=== PATIENT | male | born 1970 | race Caucasian/White ===

== ENCOUNTER 2022-03-18 09:11 | Outpatient (CLI) | payer OTHER, SELFPAY ==
--- NOTE | 2022-03-18 09:17 | ECG_ITS ---
Measurements Intervals [place] Rate: 79 P: 54 SC: 146 QRS: 40 QRSD: 92 T: 66 QT: 321 QTc: 370 Interpretive Statements SINUS RHYTHM WITH MARKED SINUS ARRHYTHMIA BASELINE WANDER- V2-V3 BORDERLINE ECG NO PREVIOUS ECG AVAILABLE FOR COMPARISON Electronically Signed On 03-18-2022 12:10:42 BALE PILER by Nathaniel Nino D.O.
== END 2022-03-18 09:12 | disposition home or self-care (01) ==
LOC: ANHLAB 09:12
PROVIDERS: PCP Family Medicine; Visit Provider Family Medicine
DX: R07.9 Chest pain, unspecified (principal)
CPT/HCPCS: 93005

== ENCOUNTER 2022-03-25 12:44 | Outpatient (CLI) | payer OTHER, SELFPAY ==
--- NOTE | ~2022-03-25 | CT_ITS ---
EXAMINATION: CT brain wo con DATE: 03/25/2022 13:30 INDICATION: Headache TECHNIQUE: Computed tomography (CT) of the head was performed without intravenous contrast. The dose- length product was 605.33 mGy-cm. Automated exposure control and iterative reconstruction technique w ere employed. COMPARISON: None FINDINGS: Normal brain parenchymal volume. Normal copeland-white differentiation. No acute intracranial h emorrhage, infarction or mass. No ventriculomegaly or midline shift. There is mucosal thickening of t he ethmoid and sphenoid sinuses. Mastoids are pneumatized. No depressed skull fractures. IMPRESSION: 1. No acute intracranial abnormality. 2: Mild sinus disease. Reviewed, dictated and finalized at location B. ICE ATTENDANT
--- NOTE | ~2022-03-25 | US_ITS ---
EXAMINATION: US carotid duplex BI DATE: 03/25/2022 13:29 INDICATION: Paresthesias of the skin TECHNIQUE: Grayscale, color Doppler, and pulsed Doppler images of the cervical carotid arteries were obtained. The degree of vessel stenosis is placed in one of the following categories: normal, <50%, 5 0-69%, >=70% but less than near-occlusion, near-occlusion, or total occlusion. Note that percent sten osis relative to normal distal artery lumen diameter is indirectly measured from velocity measurement s as described by Temo, et al. Radiology 2003; 229:340-346. Notes: Normal: Peak systolic velocity <125 centimeters/sec and no plaque <50%. Peak systolic velocity <125 ( EDV <40; ICA/CCA PSV ratio <2.0; used these factors only a tandem lesions or low cardiac output or co ntralateral disease) 50-69 %: PSV 125-230 (EDV 40-100; ratio 2-4) >= 70% but less than near occlusion: PSV greater than 230 (EDV > 100; ratio> 4.0) Near Occlusion: PSV that is variable; markedly narrowed lumen Occlusion: Absent flow on color/spectral Doppler and no lumen on copeland scale. COMPARISON: None. FINDINGS: RIGHT: The right common carotid artery (CCA) peak systolic velocity (PSV) is 145 cm/s. The right internal ca rotid artery (ICA) PSV is 87 cm/s. The right ICA end-diastolic velocity (EDV) is 21 cm/s. The right I CA/CCA PSV ratio is 0.6. The external carotid artery (ECA) PSV is 139 cm/s. There is antegrade flow i n the right vertebral artery. LEFT: The left CCA PSV is 168 cm/s. The left ICA PSV is 74 cm/s. The left ICA EDV is 27 cm/s. The left ICA/ CCA PSV ratio is 0.4. The ECA PSV is 102 cm/s. There is antegrade flow in the left vertebral artery. IMPRESSION: 1. Less than 50% stenosis in the right internal carotid artery by sonographic criteria. 2. Less than 50% stenosis in the left internal carotid artery by sonographic criteria. Reviewed, dictated and finalized at location B. IT CORRESPONDENCE CLERK IMPRESSION: 1. Less than 50% stenosis in the right internal carotid artery by sonographic c jitendra. 2. Less than 50% stenosis in the left internal carotid artery by sonographic edyta sherman.
== END 2022-03-25 12:45 | disposition home or self-care (01) ==
LOC: ANHIMG 12:46
PROVIDERS: PCP Family Medicine; Visit Provider Family Medicine
DX: R51.9 Headache, unspecified (principal); R20.2 Paresthesia of skin; I65.23 Occlusion and stenosis of bilateral carotid arteries
CPT/HCPCS: 70450; 93880

== ENCOUNTER 2022-04-07 09:52 | Outpatient (CLI) | payer OTHER, SELFPAY ==
--- NOTE | 2022-04-07 09:55 | EST_ITS ---
Patient Info Name: Shane Roman Age: 52 years : 1970 Gender: Male Ht: 68 in Wt: 210 lbs BSA: 2.17 m2 Exam Date: 04/07/2022 10:06 AM Exam Location: [facility] Stress Patient Status: Outpatient Admit Date: 04/07/2022 Staff Ordering Physician: Shiraz Masters MD Attending Provider: Shiraz Masters MD Exercise Technologist: Eliana Means RDCS Nurse: RAQUEL LOPEZ NP Exam Type: CA stress test treadmill Study Info Indications R07.9 - Chest pain, unspecified A treadmill exercise stress test was performed. Summary 1. No abnormal ST/T wave changes diagnostic of ischemia with exercise. 2. Occasional PVCs. 3. Exercise capacity very good at >10 METS. Protocol: [place] Stress ECG Details Stage: REST Duration (min): 0 min : 50 sec Speed (mph): 0.0 Grade (%): 0 HR (bpm): 88 SBP (mmHg): 143 DBP (mmHg): 89 METS: --- Stage: REST Duration (min): 2 min : 31 sec Speed (mph): 0.0 Grade (%): 0 HR (bpm): 106 SBP (mmHg): 143 DBP (mmHg): 89 METS: --- Stage: REST Duration (min): 4 min : 30 sec Speed (mph): 0.0 Grade (%): 0 HR (bpm): 97 SBP (mmHg): 143 DBP (mmHg): 89 METS: --- Stage: STAGE 1 Duration (min): 1 min : 0 sec Speed (mph): 1.7 Grade (%): 10 HR (bpm): 114 SBP (mmHg): 143 DBP (mmHg): 89 METS: --- Stage: STAGE 1 Duration (min): 2 min : 0 sec Speed (mph): 1.7 Grade (%): 10 HR (bpm): 110 SBP (mmHg): 143 DBP (mmHg): 89 METS: --- Stage: STAGE 1 Duration (min): 3 min : 0 sec Speed (mph): 1.7 Grade (%): 10 HR (bpm): 111 SBP (mmHg): 169 DBP (mmHg): 90 METS: --- Stage: STAGE 2 Duration (min): 1 min : 0 sec Speed (mph): 2.5 Grade (%): 12 HR (bpm): 118 SBP (mmHg): 169 DBP (mmHg): 90 METS: --- Stage: STAGE 2 Duration (min): 2 min : 0 sec Speed (mph): 2.5 Grade (%): 12 HR (bpm): 125 SBP (mmHg): 163 DBP (mmHg): 92 METS: --- Stage: STAGE 2 Duration (min): 3 min : 0 sec Speed (mph): 2.5 Grade (%): 12 HR (bpm): 125 SBP (mmHg): 163 DBP (mmHg): 92 METS: --- Stage: STAGE 3 Duration (min): 1 min : 0 sec Speed (mph): 3.4 Grade (%): 14 HR (bpm): 138 SBP (mmHg): 176 DBP (mmHg): 96 METS: --- Stage: STAGE 3 Duration (min): 1 min : 49 sec Speed (mph): 3.4 Grade (%): 14 HR (bpm): 143 SBP (mmHg): 176 DBP (mmHg): 96 METS: --- Stage: RECOVERY Duration (min): 0 min : 10 sec Speed (mph): 1.5 Grade (%): 0 HR (bpm): 143 SBP (mmHg): 176 DBP (mmHg): 96 METS: --- Stage: RECOVERY Duration (min): 1 min : 10 sec Speed (mph): 0.0 Grade (%): 0 HR (bpm): 134 SBP (mmHg): 176 DBP (mmHg): 96 METS: --- Stage: RECOVERY Duration (min): 2 min : 10 sec Speed (mp
== END 2022-04-07 09:53 | disposition home or self-care (01) ==
LOC: ANHCARD 09:53
PROVIDERS: PCP Family Medicine; Visit Provider Family Medicine
DX: R07.9 Chest pain, unspecified (principal)
CPT/HCPCS: 93017

== ENCOUNTER 2022-11-30 09:23 | Outpatient (CLI) | payer OTHER, SELFPAY ==
--- NOTE | ~2022-11-30 | CT_ITS ---
CT Scan of the Chest without Contrast: Clinical Indication: Lung cancer screening, smoking history Technique: Contiguous sections were acquired throughout the chest without intravenous contrast. Dose reduction technique was used on this scan by utilizing automated exposure control and iterative recon struction technique. The dose-length product (DLP) was 175.64 mGy-cm. Findings: There is no evidence of any significant mediastinal, hilar or axillary lymphadenopathy. The mediastin al soft tissues appear normal. There is no evidence of pleural or pericardial effusion. The lungs are clear. No pulmonary nodules or infiltrates are noted. Images through the upper abdomen reveal no abnormalities. There is DISH of the thoracic spine. Impression: Lung RADS 1: Negative. 12 month follow-up screening CT advised. Reviewed, dictated and finalized at location . Impression: Lung RADS 1: Negative. 12 month follow-up screening CT advised.
[2022-11-30 10:50] LABS: Alveolar/Arterial O2 Gradient 27.1 mmHg; Base Excess ABG 2.7 mEq/l (+/-2.0); Carboxyhemoglobin 0.3 % THb (0-2.0); Fractional Inspired Oxygen 21 %; HCO3 ABG 27.7 mEq/l (22.0-26.0); Methemoglobin ABG 0.4 %THb (0-1.5); Oxygen Content ABG 23.7 %vol (16.0-22.0); Oxygen Saturation ABG 94.4 % (95.0-100.0); PCO2 ABG 43.7 mmHg (35.0-45.0); PO2 ABG 70.3 mmHg (80.0-100.0); PO2 FiO2 Ratio Arterial Blood 3.35 %; Reduced Hemoglobin 6.3 %THb (0-5.0); Total Hemoglobin 18.2 g/dL (12.0-18.0)
[2022-11-30 10:59] LABS: Device ROOM AIR; Site Drawn RIGHT BRACHIAL
--- NOTE | 2022-11-30 14:05 | WPDSIXMINUTE ---
Six Minute Walk Procedure Procedure Performed Pulmonary Stress Test (6 min walk) Six Minute Walk Six Minute Walk: This is a 6 minute walk test. The test was performed and interpreted in accordance with the 2014 ERS/ATS task force guidelines. Findings: The patient's resting room air oxygen saturation measured by pulse oximetry was 94% and heart rate was 79 bpm. Patient ambulated for 305 meters and oxygen saturation remained 91 to 94%. Heart rate at the end of the study was 97 bpm. The patient did not qualify for supplemental oxygen at rest or with ambulation. There are no prior studies for comparison.
--- NOTE | 2022-11-30 14:06 | WPDPFTINT ---
PFT Procedure Performed PFT Procedure Performed Spirometry with Pre/Post Bronchodilator Plethysmography (Lung Vol) Diffusing Cap (DLCO) Flow Vol Loop PFT Interpretation This is a pulmonary function test with pre and post-bronchodilator spirometry, plethysmography, diffusing capacity, and arterial blood gas. The test was performed and results interpreted in accordance with the 2019 and 2005 ATS/ERS Task Force guidelines respectively using the Global Lung Function Initiative-2012 reference equations. Patient demonstrated good effort and cooperation. Reproducibility criteria were met. The quality of the pre bronchodilator spirometry maneuver was Grade A and post bronchodilator spirometry maneuver was Grade A. Findings: Spirometry: There is decreased maximal expiratory airflow at all lung volumes with concave expiratory flow tracing. The contour the inspiratory flow tracing is normal. The pre bronchodilator FVC is 3.53 L, 78% predicted. The pre bronchodilator FEV1 is 2.30 L, 64% predicted. The pre bronchodilator FEV1: FVC ratio 65%. The post bronchodilator FVC is 4.35 L, representing a 23 % increase. The post bronchodilator FEV1 is 2.85 L, representing a 24% increase. The post bronchodilator FEV1: FVC ratio is 65%. Plethysmography: The total lung capacity is 7.23 L, 110% predicted. The functional residual capacity is 3.73 L, 111% predicted. The residual volume is 3.57 L, 177% predicted. Diffusing capacity: The diffusing capacity unadjusted for hemoglobin and carboxyhemoglobin is 24.4, 84% predicted. The diffusing capacity adjusted for alveolar volume is 4.03, 89% predicted. Resting room air arterial blood gas: The pH is 7.42. The PaCO2 is 44. The PaO2 is 70. Impression: There is a moderate obstructive abnormality with significant improvement after inhaling a single dose of albuterol. The increase in residual volume is consistent with air trapping from an obstructive abnormality. The diffusing capacity is normal . The resting room air blood gas demonstrates normal pH and PaCO2 with a PO2 that is below the lower limit of normal. There are no prior studies for comparison
== END 2022-11-30 09:24 | disposition home or self-care (01) ==
PROVIDERS: PCP Family Medicine; Visit Provider Internal Medicine Pulmonary Disease
DX: J44.9 Chronic obstructive pulmonary disease, unspecified (principal); Z87.891 Personal history of nicotine dependence; R06.00 Dyspnea, unspecified; J40 Bronchitis, not specified as acute or chronic; R94.2 Abnormal results of pulmonary function studies
CPT/HCPCS: 36600; 71271; 82375; 82805; 83050; 94060; 94618; 94726; 94729

== ENCOUNTER 2025-04-19 10:29 | Emergency (ER) | payer BC, SELFPAY ==
[2025-04-19 10:39] VITALS: BP 137/76; PULSE 65; RESP 18; TEMP 36.6; O2SAT 97
[2025-04-19 10:56] LABS: EDSTREPNEGPOS1 Negative (Negative)
--- NOTE | 2025-04-19 11:03 | ED_ITS ---
HPI - URI/Sore Throat General Chief Complaint: Upper Respiratory Infection Stated Complaint: Sore Throat Time Seen by Provider: 04/19/25 10:45 Source: patient and RN notes reviewed Mode of arrival: ambulatory Limitations: no limitations History of Present Illness HPI Narrative: 55-year-old male patient presents Express Care complaining of eye redness and discharge, and sore throat for 2 days. Patient reports his left eye is read as having purulent drainage. Patient denies any vision problems, eye pain, headaches, nausea, vomiting, any other symptoms. Patient denies any other upper respiratory symptoms, cough, fevers, body aches, chills, or any other symptoms. Related Data Allergies Allergy/AdvReac Type Severity Reaction Status Date / Time No Known Allergies Allergy Unknown Verified 04/19/25 10:30 NKDA Allergy Mild Unknown Uncoded 11/07/24 08:52 Review of Systems Review of Systems: CONSTITUTIONAL: Denies fever, chills, or sweats. EYES: Denies visual changes. Positive for redness and discharge. ENT: Denies rhinorrhea, congestion, or otalgia. Positive for sore throat CARDIOVASCULAR: Denies chest pain, palpitations, or edema. RESPIRATORY: Denies cough or dyspnea. GASTROINTESTINAL: Denies abdominal pain, nausea, vomiting, or diarrhea. GENITOURINARY: Denies dysuria or hematuria. SKIN: Denies rash or itching. MUSCULOSKELETAL: Denies back pain, joint pain, or myalgia. NEUROLOGIC: Denies headache, numbness, or weakness. PSYCHIATRIC: Denies anxiety or depression. All other systems reviewed are negative, except as documented in HPI. [facility] Past Medical History Medical History COVID-19 (~02/24/22) GERD (gastroesophageal reflux disease) Chronic anxiety Paresthesia of left lower extremity CT of the brain on 03/25/2022 was negative except for mild thickening of the ethmoid and sphenoid sinuses. Carotid Doppler studies were negative with less than 50% occlusion bilaterally. Paresthesias in left hand New onset headache (~02/24/22) Chest pain EKG on 03/18/2022 reveals marked sinus arrhythmia with no obvious ischemia. Heart rate 76. Exercise stress test on 04/07/2022 was negative for ischemia with occasional PVCs. Hypersomnia (~07/24/21) ADHD (attention deficit hyperactivity disorder), inattentive type ADHD with treatment started in the 8th grade Obesity (BMI 30.0-34.9) BMI 31.0-31.9,adult BMI 32.0-32.9,adult Polycythemia (08/02/20) hemoglobin 17.9 on 08/02/2020. Hemoglobin 16.8 on 03/16/2022. Hemoglobin 18.5 on 11/07/2024. Atypical chest pain Chronic depression Abnormal fasting glucose Glucose 104 With hemoglobin A1c 5.9 on 03/16/2022. Fasting glucose 135 with hemoglobin A1c 6.1 with GFR 84 on 11/07/2024. Chronic nonallergic rhinitis Encounter for wellness examination in adult Colon cancer screening Cologuard screening on 01/20/2021 was negative. Recheck in 3 years. Cologuard was negative on 03/13/2025 with recheck in 3 years. Encounter for prostate cancer screening PSA 1.4 on 03/16/2022. PSA 1.3 on 11/07/2024. BPH without obstruction/lower urinary tract symptoms Chronic pain of right knee Chronic low back pain with right-sided sciatica Male erectile dysfunction, unspecified Hypogonadism male Testosterone low at 191 on 07/03/2015. Testosterone 1101 with free testosterone 20.7 on 08/02/20. total testosterone 780 with free testosterone 16.3 on 03/16/2022. Testosterone 673 with free testosterone 12.5 on 11/07/2024. Mixed hyperlipidemia Total cholesterol 159, triglycerides 231, HDL 43, LDL 73 on 03/16/2022. Cholesterol 139, triglycerides 189, HDL 44, LDL 64 on 11/07/2024. Essential (primary) hypertension Wimof-Dynmdauli-Dvris (WPW) pattern Cardiac arrhythmia Arthritis COPD (chronic obstructive pulmonary disease) patient smoked 3 packs of cigarettes daily for 25 years stopping in 2013. PFT on 11/30/2022 reveals moderate obstructive defect with reversibility. 6 minute walk test with oxygen saturation remaining above 91% on 11/30/2022. Surgical History Surgical History Hx of cholecystectomy History of cardiac ablation for atrial fibrillation H/O knee surgery (Unknown) 7 surgeries since age 11 Family History Family History Father Brain aneurysm Grandparent Cancer Unknown Hypertension Social History Social History Smoking status: Former smoker Alcohol intake: current Drinks per week: 12 Alcohol use details: beer Substance use type: marijuana Lack of Transportation: No Lack of Food: Never True Current Housing: I Have Housing Concerned About Future Housing: No Difficulty Paying Gas/Electric Bills: No Difficulty Paying for Meds: No Currently Unemployed: No Education: High School Diploma/GED Difficulty w/ Childcare or Family Care: No Living arrangements: with family Occupation/Education: occupation 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 There is no relevant family history pertinent to the patient complaint. Exam Narrative: GENERAL: This is a well-nourished, well-developed adult, in no apparent distress. They are non ill-appearing, nontoxic appearing. HEAD: normocephalic, atraumatic. EYES: Sclera clear/white. Right Conjunctiva normal. Left conjunctiva injected. Vision is grossly intact. Extraocular movements intact. Pupils PERRLA EARS: External ears normal, auditory canals clear and without drainage, TMs normal without perforation. Hearing grossly intact. NOSE: External nose normal with no obvious nasal discharge, nasal turbinates without redness, no rhinorrhea. THROAT: Mucous membranes moist, posterior pharynx erythematous red and patchy. Tonsils erythematous with exudate, 2+. Uvula midline. NECK: Neck supple, mild tender cervical lymphadenopathy, no masses or thyromegaly. CARDIOVASCULAR: Regular rate and rhythm without murmurs, gallops, or rubs. RESPIRATORY: Clear to auscultation. Breath sounds equal bilaterally. No wheezes, rales, or rhonchi. SKIN: warm, Dry, intact with no suspicious lesions or rash, good texture and turgor. NEURO: awake, alert, and oriented to person, place and time. There were no obvious focal neurologic abnormalities. EXTREMITIES: No joint tenderness, effusion, or edema noted. BACK: Nontender without deformity. No CVA tenderness. Course Course Level of Care: Express Care Visit Vital Signs Vital signs: Vital Signs Temperature 97.8 F 04/19/25 10:39 Pulse Rate 65 04/19/25 10:39 Respiratory Rate 18 04/19/25 10:39 Blood Pressure 137/76 04/19/25 10:39 Pulse Oximetry 97 04/19/25 10:39 Oxygen Delivery Room Air 04/19/25 10:39 Temperature 97.8 F 04/19/25 10:39 Pulse Rate 65 04/19/25 10:39 Respiratory Rate 18 04/19/25 10:39 Blood Pressure 137/76 04/19/25 10:39 Pulse Oximetry 97 04/19/25 10:39 Oxygen Delivery Room Air 04/19/25 10:39 MDM MDM Narrative Medical decision making narrative: Rapid strep negative. A throat culture is pending. There is clinical suspicion of strep pharyngitis, he has a known exposure to strep throat. Patient would like to wait for culture results prior to antibiotic therapy. Send him home dexamethasone for the pain. Appears patient has conjunctivitis left eye, will send over polymyxin eye drops. Discussed supportive care. Discussed physical exam findings. Advised supportive measures and signs/symptoms to go to the ER. Pt is appropriate for outpt treatment and f/u. Differential Diagnosis Differential Diagnosis: Differential diagnostic considerations for upper respiratory infection include upper respiratory infection, croup, otitis media, sinusitis, viral infection, bronchitis, influenza, pharyngitis, strep, uvulitis, conjunctivitis. Lab Data [facility] Lab Attestation statement: I personally reviewed the patient's lab results. Labs: Lab Results 04/19/25 Range/Units 10:39 POC Grp A Strep Screen Negative (Negative) Critical Care Time Critical Care Time Critical Care Time: No Discharge Plan Discharge Clinical Impression: Acute pharyngitis Qualifiers: Pharyngitis/tonsillitis etiology: unspecified etiology Qualified Code(s): J02.9 - Acute pharyngitis, unspecified Acute bacterial conjunctivitis Qualifiers: Laterality: left Qualified Code(s): H10.32 - Unspecified acute conjunctivitis, left eye Patient Disposition: Home Condition: Stable Instructions: Antibiotic Form, Pharyngitis (ED), Conjunctivitis (ED) Additional Instructions: Your exam today shows Conjunctivitis, You have been given a prescription for eye drops. Use the eye drops as instructed. If you are not better in two (2) days, you need to follow up with an vp software support. Do not rub the eye or put anything else in the eye, this can cause abrasions (scratches) on the eye or lead to vision loss. Also it is important not to touch the tube or tip of drops to the eye, as this can cause further infection. Wash your hands very well before instilling the medication. Handwashing can help prevent the spread of disease. Your rapid strep swab was negative today at [facility]. You will be notified in a few days if the culture comes back positive for strep, and appropriate antibiotics will be called in for you at that time. Your symptoms are likely due to a viral illness, which is not treated with antibiotics. Viral symptoms can be present for up to 10-14 days. Take Tylenol or ibuprofen as needed for fever or pain instructions on the bottle. Take the 1 time dose of dexamethasone as directed. Rest and stay hydrated. Follow up with your PCP in find the 7 days if symptoms are not improving. Go to the ER immediately if you developed chest pain, nausea, vomiting, vision problems, severe headaches, difficulty breathing or swallowing, or any serious concerns Patient Language: Polish Prescriptions: New dexamethasone 6 mg tablet 6 mg PO DAILY 1 Days Qty: 1 0RF polymyxin B sulf-trimethoprim 10,000 unit- 1 mg/mL drops 1 drp LEFT EYE Q3H 7 Days Qty: 10 0RF Rx Instructions: while awake; do not exceed 6 doses in 24 hours No Action albuterol sulfate [ProAir HFA] 90 mcg/actuation HFA aerosol inhaler 2 puff INHALATION Q4H PRN (Reason: shortness of breath or wheezing) Qty: 8.5 5RF sildenafil 100 mg tablet 100 mg PO DAILY PRN (Reason: sexual activity) Qty: 90 3RF Rx Instructions: administer 30 minutes to 4 hours before activity roberts pay with good Rx discount $45.58 nitroglycerin 0.4 mg tablet, sublingual 0.4 mg sublingual Q5M PRN (Reason: chest pain) Qty: 50 0RF Rx Instructions: do not exceed 3 doses per episode do not take with sildenafil tiotropium bromide 2.5 mcg/actuation mist 1 inh inhalation .twice a day Qty: 4 0RF (DME) [employer] Luer Lock Syr-needle 3 mL 23 x 1 syringe See Rx Instructions .Route Qty: 50 0RF Rx Instructions: use with testosterone injection once weekly atorvastatin 20 mg tablet 20 mg PO DAILY Qty: 90 3RF krzzsvmzye-gqhnalpyqnrcl-bopw 50-325-40 mg tablet 1 tablet PO Q6H PRN (Reason: headache) Qty: 60 2RF (DME) BD Eclipse Luer-Vladislav 25 gauge x 1 1/2 needle See Rx Instructions .Route Qty: 50 1RF Rx Instructions: use weekly with testosterone duloxetine [Cymbalta] 60 mg capsule,delayed release(DR/EC) 60 mg PO DAILY Qty: 90 3RF lisinopril-hydrochlorothiazide 20-12.5 mg tablet 1 tablet PO DAILY Qty: 90 3RF testosterone cypionate [Depo-Testosterone] 200 mg/mL oil 200 mg IM WEEKLY Qty: 10 2RF Rx Instructions: as a single dose Follow-up/Referrals: Shiraz Masters MD [Primary Care Provider, [facility]] Time of Disposition: 11:00
--- OUTSIDE RECORDS SUMMARY | 2025-04-19 11:11 | XMS_ITS | Clinical Summary ---
Author Organization [facility] Address [address] [place] [address] Phone Care Team Providers Care Livestock Speculator Name Role Phone Shiraz Masters MD Primary Care Provider Allergies No known active allergies Medications lisinopril-hydro CHLOROthiazide (PRINZIDE, ZESTORETIC) 20-12.5 MG Tablet Take 1 Tab by mouth daily. Active Encounters Date Type Department Care Team Description 03/03/2025 9:34 AM CDT - 03/03/2025 10:18 AM CDT Emergency [facility] Emergency [address] [place] [phone] Steven Vargas MD Cellulitis of right hand Discharge Disposition: Discharged to home or Selfcare 03/03/2025 Travel 02/19/2025 3:57 PM CDT - 02/19/2025 5:43 PM CDT Emergency [facility] Emergency [address] [place] [phone] Venessa Seth APRN, CNP Discharge Disposition: [facility] 02/19/2025 Travel from Last 3 Months Immunizations Immunization Administration Dates Next Due TDAP Vaccine 01/13/2017 Social History Tobacco Use Types Packs/Day Years Used Date Smoking Tobacco: Former Alcohol Use Standard Drinks/Week Comments Yes 0 (1 standard drink = 0.6 oz pur e alcohol) Sex and Gender Information Value Date Recorded Sex Assigned at Not on file Legal Sex Male 11:31 PM CDT Gender Identity Not on file Sexual Orientation Not on file Last Filed Vital Signs Vital Sign Reading Time Taken Comments Blood Pressure 127/79 03/03/2025 10:00 AM CDT Pulse 70 03/03/2025 10:00 AM CDT Temperature 35.6 C (96.1 F) 03/03/2025 9:41 AM CDT Respiratory Rate 18 03/03/2025 9:41 AM CDT Oxygen Saturation 98% 03/03/2025 10:00 AM CDT Inhaled Oxygen Concentration - - Weight 93.1 kg (205 lb 4 oz) 03/03/2025 9:41 AM CDT Height 172.7 cm (5' 8) 03/03/2025 9:41 AM CDT Body Mass Index 31.21 03/03/2025 9:41 AM CDT Plan of Treatment Health Maintenance Due Date Last Done Comments Hepatitis C Virus (HCV) Screening 1970 Hepatitis B Immunization (1 of 3 - 19+ 3-dose series) 01/26/1987 Cologuard 01/26/2013 Colonoscopy 01/26/2013 Colorectal Cancer Screening 01/26/2013 Immunochemical Fecal Occult Blood 01/26/2013 Pneumococcal Immunization (5 0+ years) (1 of 1 - PCV) 01/26/2018 Zoster Immunization (1 of 2) 01/26/2018 PSA Discussion 01/26/2023 Influenza Immunization (#1) 2025 SARS-COV-2 Immunization (1 - season) 2025 Td Immunization Every 10 Yea rs (Adults With 1 Tdap) 01/13/2027 01/13/2017 Respiratory Syncytial Virus (RSV) Immunization (Adult) (1 - 1-dose 75+ series) 01/26/2043 DTaP/Tdap/Td Immunization Discontinued 01/13/2017 Human Papillomavirus (HPV) Immunization (No Doses Required) Completed Meningococcal Immunization (ACWY) Aged Out No longer eligible based on patient's age to complete this topic Rotavirus Immunization Aged Out No lo nger eligible based on patient's age to complete this topic Procedures Procedure Name Priority Date/Time Associated Diagnosis Comments FOREIGN BODY REMOVAL Routine 03/03/2025 9:35 AM CDT XR PELVIS 1 OR 2 VIEWS STAT 02/19/2025 5:02 PM CDT XR CHEST SINGLE VIEW PORTABLE STAT 02/19/2025 4:16 PM CDT LAVENDER TOP TUBE STAT 02/19/2025 4:1 3 PM CDT LAVENDER TOP TUBE STAT 02/19/2025 4:1 3 PM CDT CBC WITH AUTO DIFFERENTIAL STAT 02/19/2025 4:13 PM CDT EXTRA TUBES STAT 02/19/2025 4:13 PM CDT PROTIME (PT) (PROTHROMBIN TIME) STAT 02/19/2025 4:13 PM CDT CMP (COMPREHENSIVE METABOLIC PANEL) STAT 02/19/2025 4:13 PM CDT COMPLETE BLOOD COUNT (CBC) WITH DIFF STAT 02/19/2025 4:13 PM CDT from Last 3 Months Results * Foreign Body Removal (03/03/2025 9:35 AM CDT) Narrative Steven Vargas MD - 03/03/2025 9:35 AM CDT Steven Vargas MD 03/03/2025 9:58 AM Foreign Body Removal Performed by: Steven Vargas MD Authorized by: Steven Vargas MD Consent: Consent obtained: Verbal Consent given by: Patient Risks, benefits, and alternatives were discussed: yes Risks discussed: Bleeding, incomplete removal, worsening of condition, pain, poor cosmetic result, nerve damage and infection Alternatives discussed: No treatment, delayed treatment, alternative treatment, observation and referral [place] protocol: Procedure explained and questions answered to patient or proxy's satisfaction: yes Relevant documents present and verified: yes Test results available: yes Imaging studies available: yes Required blood products, implants, devices, and special equipment available: yes Patient identity confirmed: Verbally with patient and arm band Location: Location: Hand Hand location: R palm Depth: Intradermal Tendon involvement: None Pre-procedure details: Imaging: None Anesthesia: Anesthesia method: None Procedure type: Procedure complexity: Simple Procedure details: Incision length: 2cm Localization method: Probed and visualized Removal mechanism: Forceps and irrigation Foreign bodies recovered: None Intact foreign body removal: no Post-procedure details: Neurovascular status: intact Confirmation: No additional foreign bodies on visualization Skin closure: None Dressing: Adhesive bandage Procedure completion: Tolerated well, no immediate complications Steven Vargas MD PROCEDURE/MINOR SURGICAL ORDERABLES Final Result * XR PELVIS 1 OR 2 VIEWS (02/19/2025 5:02 PM CDT) Anatomical Region Laterality Modality Abdomen, Pelvis N/A Digital Radiogra phy 02/19/2025 8:58 PM CDT Impressions 02/19/2025 8:58 PM CDT FINDINGS/IMPRESSION: There are no acute fractures or dislocations of the bony pelvis. 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 No focal bony lesions or osseous erosions. Pelvic phleboliths. Narrative 02/19/2025 8:58 PM CDT DICTATING PHYSICIAN: Zoran Rivera M.D. PROCEDURE: XR PELVIS 1 OR 2 VIEWS INDICATION: fall today TECHNIQUE: Frontal view of the pelvis. 1 view(s) submitted. COMPARISON: None. Procedure Note Zoran Rivera MD - 02/19/2025 DICTATING PHYSICIAN: Zoran Rivera M.D. PROCEDURE: XR PELVIS 1 OR 2 VIEWS INDICATION: fall today TECHNIQUE: Frontal view of the pelvis. 1 view(s) submitted. COMPARISON: None. FINDINGS/IMPRESSION: There are no acute fractures or dislocations of the bony pelvis. There aremild osteoarthritic changes of both hips. No focal bony lesions orosseous erosions. Pelvic phleboliths. Venessa Seth ATHLETIC DIRECTOR, AUTOMOTIVE FLEET SUPERVISOR IMG DIAGNOSTIC ORD ERABLES Final Result * XR CHEST SINGLE VIEW PORTABLE (02/19/2025 4:16 PM CDT) Anatomical Region Laterality Modality Chest N/A Digital Radiogra phy 02/19/2025 9:00 PM CDT Narrative 02/19/2025 9:00 PM CDT DICTATING PHYSICIAN: Zoran Rivera M.D. PROCEDURE: XR CHEST SINGLE VIEW PORTABLE INDICATION: Shortness of breath, trauma, fell 20ft landing on back today. Hx heart ablation. Former smoker. TECHNIQUE: AP portable chest radiograph. 1 view submitted. COMPARISON: None FINDINGS: The cardiomediastinal silhouette is normal. The hilar contours are unremarkable. The pulmonary vascularity is normal. No focal lung consolidation, mass, pleural effusion, or pneumothorax are seen. No acute fractures are demonstrated in the [id number] within sensitivity of portable single view chest radiography lacking dedicated bone views. CONCLUSION: No evidence of acute intrathoracic process. Procedure Note Zoran Rivera MD - 02/19/2025 DICTATING PHYSICIAN: Zoran Rivera M.D. PROCEDURE: XR CHEST SINGLE VIEW PORTABLE INDICATION: Shortness of breath, trauma, fell 20ft landing on back today.Hx heart ablation. Former smoker. TECHNIQUE: AP portable chest radiograph. 1 view submitted. COMPARISON: None FINDINGS: The cardiomediastinal silhouette is normal. The hilar contours areunremarkable. The pulmonary vascularity is normal. No focal lungconsolidation, mass, pleural effusion, or pneumothorax are seen. No acutefractures are demonstrated in the [id number] within sensitivity ofportable single view chest radiography lacking dedicated bone views. CONCLUSION: No evidence of acute intrathoracic process. Venessa Seth APRN, CNP IMG DIAGNOSTIC ORD ERABLES Final Result * Lavender Top Tube (02/19/2025 4:13 PM CDT) Only the most recent of2 resultswithin the time period is included. Blood No Phlebotomy Charged / Unknown 02/19/2025 4:13 PM CDT 02/19/2025 4:21 PM CDT Venessa Seth APRN, CNP HEMATOLOGY ORDERAB LES Final Result [facility] [address] [place] [address] * (ABNORMAL) CBC with Auto Differential (02/19/2025 4:13 PM CDT) WBC 15.52(H) 4.00 - 12.00 10(3)/mcL 02/19/2025 4:54 PM CDT [facility] RBC 6.17(H) 4.40 - 5.80 10(6)/mcL 02/19/2025 4:54 PM CDT [facility] HEMOGLOBIN (HGB) 18.2(H) 13.0 - 16.5 g/dL 02/19/2025 4:54 PM CDT [facility] HEMATOCRIT (HCT) 52.5(H) 38.0 - 50.0 % 02/19/2025 4:54 PM CDT [facility] MCV 85.1 82.0 - 96.0 fL 02/19/2025 4:54 PM CDT [facility] MCH 29.5 26.0 - 32.0 pg 02/19/2025 4:54 PM CDT [facility] MCHC 34.7 31.0 - 36.0 g/dL 02/19/2025 4:54 PM CDT [facility] PLATELET COUNT 226 140 - 440 10(3)/mcL 02/19/2025 4:54 PM CDT [facility] RDW 12.5 11.8 - 15.5 % 02/19/2025 4:54 PM CDT [facility] MPV 10.5 8.0 - 12.6 fL 02/19/2025 4:54 PM CDT [facility] NEUTROPHILS 86.9(H) 40.0 - 68.0 % 02/19/2025 4:54 PM CDT [facility] LYMPHOCYTES 6.9(L) 19.0 - 49.0 % 02/19/2025 4:54 PM CDT [facility] MONOCYTES 5.2 3.0 - 13.0 % 02/19/2025 4:54 PM CDT [facility] EOSINOPHILS 0.3 0.0 - 8.0 % 02/19/2025 4:54 PM CDT [facility] BASOPHILS 0.3 0.0 - 1.0 % 02/19/2025 4:54 PM CDT [facility] IMMATURE GRANULOCYTE 0.4 0.0 - 0.4 % 02/19/2025 4:54 PM CDT [facility] ABSOLUTE NEUTROPHILS 13.49(H) 1.40 - 5.30 10(3)/mcL 02/19/2025 4:54 PM CDT [facility] ABSOLUTE LYMPHOCYTES 1.07 0.90 - 3.30 10(3)/mcL 02/19/2025 4:54 PM CDT [facility] ABSOLUTE MONOCYTES 0.80 0.10 - 0.90 10(3)/[facility] 02/19/2025 4:54 PM CDT [facility] ABSOLUTE EOSINOPHIL 0.05 0.00 - 0.50 10(3)/[facility] 02/19/2025 4:54 PM CDT [facility] ABSOLUTE BASOPHILS 0.05 0.00 - 0.10 10(3)/[facility] 02/19/2025 4:54 PM CDT [facility] ABSOLUTE IMMATURE GRANULOCYTE 0.06(H) 0.00 - 0.03 10 (3) mcL. 02/19/2025 4:54 PM CDT [facility] NRBC PER 100 WBC 0 02/20/20 4:54 PM CDT [facility] RESULTS ARE CONSISTENT WITH PERIPHERAL SMEAR REVIEW Yes 02/19/2025 4:54 PM CDT [facility] RBC MORPHOLOGY CONSISTENT WITH INDICES Yes 02/19/2025 4:54 PM CDT [facility] Blood Venipuncture / Unknown 02/19/2025 4:13 PM CDT 02/19/2025 4:24 PM CDT us Venessa Seth APRN, AUTOMOTIVE FLEET SUPERVISOR HEMATOLOGY ORDERAB LES Final Result [facility] [address] [place] [address] * Protime (PT or Prothrombin Time) [id number] (02/19/2025 4:13 PM CDT) Pathologist [facility] PROTIME-PATIENT 13.6 11.6 - 14.8 sec 02/19/2025 4:50 PM CDT [facility] INR 1.0 0.9 - 1.2 02/19/2025 4:50 PM CDT [facility] Comment: Therapeutic Ranges INR = 2.0-3.0: Venous thromb, atrial fib, pul embolism, tissue heart valve, ami. INR = 2.5-3.5: Mechanical heart valve Critical value for INR is >/= 4.5 Blood Venipuncture / Unknown 02/19/2025 4:13 PM CDT 02/19/2025 4:24 PM CDT us Venessa Seth APRN, AUTOMOTIVE FLEET SUPERVISOR HEMATOLOGY ORDERAB LES Final Result [facility] [address] [place] [address] * (ABNORMAL) Comprehensive Metabolic Panel (Cmp) [id number] (02/19/2025 4:13 PM CDT) [facility] SODIUM 139 136 - 145 mmol/L 02/19/2025 4:43 PM CDT [facility] POTASSIUM 3.5 3.5 - 5.1 mmol/L 02/19/2025 4:43 PM CDT [facility] CHLORIDE 103 98 - 107 mmol/L 02/19/2025 4:43 PM CDT [facility] CO2, VENOUS 23 22 - 30 mmol/L 02/19/2025 4:43 PM CDT [facility] ANION GAP 16.5 <18.0 mmol/L 02/19/2025 4:43 PM CDT [facility] GLUCOSE 154(H) 70 - 99 mg/dL 02/19/2025 4:43 PM CDT [facility] BUN 22 8 - 26 mg/dL 02/19/2025 4:43 PM CDT [facility] CREATININE, BLOOD 0.99 0.70 - 1.30 mg/dL 02/19/2025 4:43 PM T [facility] BUN/CREATININE RATIO 22(H) 12 - 20 ratio 02/19/2025 4:43 PM [facility] TOTAL PROTEIN 7.3 6.0 - 8.0 g/dL 02/19/2025 4:43 PM T [facility] ALBUMIN 4.8 3.5 - 5.0 g/dL 02/19/2025 4:43 PM T [facility] A/G RATIO 1.9 1.0 - 2.2 02/19/2025 4:43 PM [facility] CALCIUM 9.5 8.7 - 10.5 mg/dL 02/19/2025 4:43 PM [facility] T BILI 0.6 0.2 - 1.2 mg/dL 02/19/2025 4:43 PM T [facility] SGOT (AST) 32 <43 U/L 02/19/2025 4:43 PM [facility] SGPT (ALT) 46 <56 U/L 02/19/2025 4:43 PM [facility] ALKALINE PHOSPHATASE 71 40 - 150 U/L 02/19/2025 4:43 PM [facility] GFR, ESTIMATED >60 >=60 02/19/2025 4:43 PM T [facility] Comment: Creatinine Clearance is the preferred criteria for selecting drug dose adjustments in renally impaired patients. The GFR is provided as additional pertinent clinical information. GFR is reported in mL/min/1.73 sq m. Calculation based on the 2020 Chronic Kidney Disease Epidemiology Collaboration (CKD-EPI) equation refit without adjustment for race. GFR, EST. >60 >=60 025 4:43 PM T [facility] Comment: Creatinine Clearance is the preferred criteria for selecting drug dose adjustments in renally impaired patients. The GFR is provided as additional pertinent clinical information. GFR is reported in mL/min/1.73 sq m. Calculation based on the 2009 Chronic Kidney Disease Epidemiology Collaboration (CKD-EPI). GFR, EST. NONAFRICAN >60 >=60 02/19/2025 4:43 PM CDT [facility] Comment: Creatinine Clearance is the preferred criteria for selecting drug dose adjustments in renally impaired patients. The GFR is provided as additional pertinent clinical information. GFR is reported in mL/min/1.73 sq m. Calculation based on the 2009 Chronic Kidney Disease Epidemiology Collaboration (CKD-EPI). Blood Venipuncture / Unknown 02/19/2025 4:13 PM CDT 02/19/2025 4:24 PM CDT us Venessa Seth APRN, AUTOMOTIVE FLEET SUPERVISOR CHEMISTRY ORDERABL ES Final Result [facility] [address] [place] [address] from Last 3 Months Insurance Care Teams Livestock Speculator Relationship Specialty Start Date End Date Shiraz Masters MD [id number] [id number] PCP - General Family Medicine 01/13/17
--- OUTSIDE RECORDS SUMMARY | 2025-04-19 11:11 | XMS_ITS | Clinical Summary ---
Author Organization [facility] Address [address] [place] [address] Care Team Providers Care Client Service Associate Name Role Phone Shiraz Masters MD Primary Care Provider [phone] Source Comments [facility],non-owned Affiliates and Associated Physician Practices is amultiple site organization consisting of ambulatory clinics and hospital sitesin [place] and [place]. This disclosure is being madepursuant to the Care Everywhere program and may not contain all information available regarding this patient. Last updated 18.TabUp Allergies No known active allergies Active Problems Problem Noted Date Diagnosed Date Pulmonary nodule 02/20/2025 Fall from ladder 02/20/2025 Encounters Date Type Department Care Team Description 02/19/2025 6:29 PM CDT - 02/20/2025 1:30 AM CDT Emergency [facility] EMERGENCY DEPARTMENT [address] [place] [address] Antonio Leary MD Mollman, Matthew, MD Right upper lobe pulmonary nodule (Primary Dx); Fall, initial encounter; Tachycardia Discharge Disposition: Home or Self Care 02/19/2025 Travel from Last 3 Months Social History Tobacco Use Types Packs/Day Years Used Date Smoking Tobacco: Never Assessed Sex and Gender Information Value Date Recorded Sex Assigned at Not on file Legal Sex Male 4:23 PM CDT Gender Identity Not on file Sexual Orientation Not on file Last Filed Vital Signs Vital Sign Reading Time Taken Comments Blood Pressure 119/79 02/20/2025 1:30 AM CDT Pulse 94 02/20/2025 1:30 AM CDT Temperature 37.1 C (98.8 F) 02/19/2025 6:34 PM CDT Respiratory Rate 18 02/20/2025 1:30 AM CDT Oxygen Saturation 94% 02/19/2025 6:32 PM CDT Inhaled Oxygen Concentration - - Weight - - Height - - Body Mass Index - - Plan of Treatment Health Maintenance Due Date Last Done Comments RAGHAVENDRA (AGES 45-75) - COL ON CA SCREENING 1968 COLON MONITORING 1968 COLONOSCOPY - COLON CA SCREENING 1968 CT COLONOGRAPHY - COLON CA SCREENING 1968 Colorectal Cancer Screening 1968 FIT - COLON CA SCREENING 1968 FLEX SIG - COLON CA SCREENING 1968 LIPID TESTING 1968 HIV SCREENING 01/26/1983 HEPATITIS C SCREENING 01/22/1986 DTAP/TDAP/TD VACCINES (1 - Tdap) 01/26/1987 HEPATITIS B VACCINE (1 of 3 - 19+ 3-dose series) 01/26/1987 PNEUMOCOCCAL VACCINE 50+ (1 of 1 - PCV) 01/26/2018 ZOSTER VACCINE (1 of 2) 01/26/2018 DEPRESSION SCREENING 05/03/2024 COVID-19 VACCINE (1 - 2024-2 6 season) 2025 INFLUENZA VACCINE (#1) 2025 HIB VACCINE Aged Out No longer eligi ble based on patient's age to complete this topic HPV VACCINE Aged Out No longer eligi ble based on patient's age to complete this topic MENINGOCOCCAL (Group B) VACC INE SHARED DECISION-MAKING Aged Out No longer eligibl e based on patient's age to complete this topic MENINGOCOCCAL GROUPS A/C/Y/W VACCINE Aged Out No longer eligible b ased on patient's age to complete this topic Procedures Procedure Name Priority Date/Time Associated Diagnosis Comments CARDIAC EKG ORDER 02/21/2025 1:0 9 PM CDT PT-INR STAT 02/19/2025 9:30 PM CDT EKG 12-LEAD STAT 02/19/2025 9:24 PM CDT Fall, initial encounter Tachycardia XR KNEE LEFT 2VW OR LESS STAT 02/19/2025 8:13 PM CDT Fall, initial encounter Tachycardia XR FOOT LEFT 2VW STAT 02/19/2025 8:11 PM CDT Fall, initial encounter Tachycardia XR ANKLE LEFT 2VW STAT 02/19/2025 8:1 0 PM CDT Fall, initial encounter Tachycardia CT LUMBAR SPINE WO CONTRAST STAT 02/19/2025 7:11 PM CDT Fall, initial encounter CT THORACIC SPINE WO CONTRAST STAT 02/19/2025 7:11 PM CDT Fall, initial encounter CT CHEST ABDOMEN PELVIS W CONT STAT 02/19/2025 7:11 PM CDT Fall, initial encounter CT CERVICAL SPINE WO CONTRAST STAT 02/19/2025 7:11 PM CDT Fall, initial encounter CT HEAD WO CONTRAST STAT 02/19/2025 7 :11 PM CDT Fall, initial encounter XR CHEST 1VW PORTABLE STAT 02/19/2025 6:48 PM CDT Fall, initial encounter XR PELVIS 1 OR 2VW Routine 02/19/2025 6: 48 PM CDT Fall, initial encounter TYPE + SCREEN PANEL STAT 02/19/2025 6 :46 PM CDT TEG 6S PLATELET MAPPING STAT 02/19/2025 6:46 PM CDT TEG 6 GLOBAL HEMOSTASIS W/ LYSIS STAT 02/19/2025 6:46 PM CDT COMPREHENSIVE METABOLIC PANEL STAT 02/19/2025 6:46 PM CDT CBC W AUTO DIFFERENTIAL STAT 02/19/2025 6:46 PM CDT ALCOHOL ETHYL BLOOD STAT 02/19/2025 6 :46 PM CDT from Last 3 Months Results * CARDIAC EKG ORDER (02/21/2025 1:09 PM CDT) Narrative 02/21/2025 1:09 PM CDT Ordered by an unspecified provider. us Scanned Document CARDIAC SERVICES ORDERABLES Fin al Result * PT-INR (02/19/2025 9:30 PM CDT) PT 13.9 12.1 - 14.8 Seconds 02/19/2025 10:09 PM CDT [facility] LABORATORY [facility] INR 1.1 See Comment 02/19/2025 10:09 PM CDT [facility] Comment:The suggested therap eutic range for standard coumadin (warfarin) therapy is an INR of 2.0-3.0. For high-risk patients (Mechanical Mitral Valve Prosthesis, etc.), the suggested prophylactic therapeutic range is an INR of 2.5-3.5. Blood BLOOD SPECIMEN / Unknown Venipuncture / Unknown 02/19/2025 9:30 PM CDT 02/19/2025 9:45 PM CDT Antonio Leary MD LAB - COAGULATION ORDERABLES Final Result [facility] [address] [place] [id number], [facility] [place] [phone] * EKG 12-LEAD (02/19/2025 9:24 PM CDT) Ventricular Rate 97 BPM [facility]USE Atrial Rate 97 BPM [facility] MUSE P-R Interval 180 ms [facility] MUSE QRS Duration ms 80 ms [facility] MUSE Q-T Interval ms 346 ms [facility] MUSE QTC Calculation (Bezet) 439 ms [facility] MUSE Calculated P Flowood 68 degrees [facility] MUSE Calculated R Flowood 38 degrees [facility]USE Calculated T Flowood 47 degrees [facility] MUSE Interpretation EKG NORMAL SINUS RHYTHM NORMAL ECG NO PREVIOUS ECGS AVAILABLE Confirmed by GAYE SAPP, GAVINO ([id number]) on 02/21/2025 10:55:01 PM [facility] MUSE 02/19/2025 9:24 PM CDT 02/21/2025 10:55 PM CDT us Antonio Leary MD ECG ORDERABLES Edited Result - Final [facility]USE * XR Knee Left 2Vw or Less (02/19/2025 8:13 PM CDT) Anatomical Region Laterality Modality Lower Extremity Digital Radiogra phy 02/19/2025 11:4 8 PM CDT Impressions 02/20/2025 1:26 AM CDT IMPRESSION: No acute fracture or dislocation identified. The report was drafted by Stacey Gresham MD (memory care program resident) 02/19/2025 11:49 PM. > Dictated by Stacey Gresham MD 02/19/2025 11:48 PM > Dictated by White Sugar Boiler I, J Luis Barber MD have personally reviewed and interpreted this examination/study. > Interpreting Provider: J Luis Barber MD on 02/20/2025 1:26 AM Narrative 02/20/2025 1:26 AM CDT PROCEDURE: XR FOOT LEFT 2VW, XR KNEE LEFT 2VW OR LESS, XR ANKLE LEFT 2VW, DATE/TIME OF EXAM: 02/19/2025 8:11 PM, LOCATION [facility] INDICATION: W19.XXXA: Fall, initial encounter R00.0: Tachycardia ADDITIONAL CLINICAL INFORMATION: Ordering Provider Reason For Exam: possible fx COMPARISON: None. FINDINGS: Left knee: The osseous structures are intact and well aligned without acute fracture or dislocation. The knee joint space is preserved. No joint effusion is seen. Bone density and texture are normal. Left ankle: The osseous structures are intact and well aligned without acute fracture or dislocation. The ankle mortise is intact. Bone density and texture are normal. No soft tissue swelling is present. Left foot: The osseous structures are intact and well aligned without acute fracture or dislocation. The joint spaces are preserved. Bone density and texture are normal. No soft tissue swelling is present. There is a bipartite hallux fibular sesamoid. Procedure Note J Luis Barber MD - 02/20/2025 PROCEDURE: XR FOOT LEFT 2VW, XR KNEE LEFT 2VW OR LESS, XR ANKLE [id number], DATE/TIME OF EXAM: 02/19/2025 8:11 PM, LOCATION [facility] INDICATION: W19.XXXA: Fall, initial encounter R00.0: Tachycardia ADDITIONAL CLINICAL INFORMATION: Ordering Provider Reason For Exam: possible fx COMPARISON: None. FINDINGS: Left knee: The osseous structures are intact and well aligned without acutefracture or dislocation. The knee joint space is preserved. No joint effusion is seen. Bone density and texture are normal. Left ankle: The osseous structures are intact and well aligned without acutefracture or dislocation. The ankle mortise is intact. Bone density and textureare normal. No soft tissue swelling is present. Left foot: The osseous structures are intact and well aligned without acutefracture or dislocation. The joint spaces are preserved. Bone density and texture are normal. No soft tissue swelling is present. There is a bipartitehallux fibular sesamoid. IMPRESSION: No acute fracture or dislocation identified. The report was drafted by Stacey Gresham MD (memory care program resident) 02/19/2025 11:49 PM. > Dictated by Stacey Gresham MD 02/19/2025 11:48 PM > Dictated by White Sugar Boiler I, J Luis Barber MD have personally reviewed and interpreted this examination/study. > Interpreting Provider: J Luis Barber MD on 02/20/2025 1:26 AM us Antonio Leary MD DIAGNOSTIC IMAGING ORDERABLES Final Result * XR Foot Left 2Vw (02/19/2025 8:11 PM CDT) Anatomical Region Laterality Modality Ankle / Foot Digital Radiogra phy 02/19/2025 11:4 8 PM CDT Impressions 02/20/2025 1:26 AM CDT IMPRESSION: No acute fracture or dislocation identified. The report was drafted by Stacey Gresham MD (memory care program resident) 02/19/2025 11:49 PM. > Dictated by Stacey Gresham MD 02/19/2025 11:48 PM > Dictated by White Sugar Boiler IJ Luis MD have personally reviewed and interpreted this examination/study. > Interpreting Provider: J Luis Barber MD on 02/20/2025 1:26 AM Narrative 02/20/2025 1:26 AM CDT PROCEDURE: XR FOOT LEFT 2VW, XR KNEE LEFT 2VW OR LESS, XR ANKLE LEFT 2VW, DATE/TIME OF EXAM: 02/19/2025 8:11 PM, LOCATION [facility] INDICATION: W19.XXXA: Fall, initial encounter R00.0: Tachycardia ADDITIONAL CLINICAL INFORMATION: Ordering Provider Reason For Exam: possible fx COMPARISON: None. FINDINGS: Left knee: The osseous structures are intact and well aligned without acute fracture or dislocation. The knee joint space is preserved. No joint effusion is seen. Bone density and texture are normal. Left ankle: The osseous structures are intact and well aligned without acute fracture or dislocation. The ankle mortise is intact. Bone density and texture are normal. No soft tissue swelling is present. Left foot: The osseous structures are intact and well aligned without acute fracture or dislocation. The joint spaces are preserved. Bone density and texture are normal. No soft tissue swelling is present. There is a bipartite hallux fibular sesamoid. Procedure Note J Luis Barber MD - 02/20/2025 PROCEDURE: XR FOOT LEFT 2VW, XR KNEE LEFT 2VW OR LESS, XR ANKLE [id number], DATE/TIME OF EXAM: 02/19/2025 8:11 PM, LOCATION [facility] INDICATION: W19.XXXA: Fall, initial encounter R00.0: Tachycardia ADDITIONAL CLINICAL INFORMATION: Ordering Provider Reason For Exam: possible fx COMPARISON: None. FINDINGS: Left knee: The osseous structures are intact and well aligned without acutefracture or dislocation. The knee joint space is preserved. No joint effusion is seen. Bone density and texture are normal. Left ankle: The osseous structures are intact and well aligned without acutefracture or dislocation. The ankle mortise is intact. Bone density and textureare normal. No soft tissue swelling is present. Left foot: The osseous structures are intact and well aligned without acutefracture or dislocation. The joint spaces are preserved. Bone density and texture are normal. No soft tissue swelling is present. There is a bipartitehallux fibular sesamoid. IMPRESSION: No acute fracture or dislocation identified. The report was drafted by Stacey Gresham MD (memory care program resident) 02/19/2025 11:49 PM. > Dictated by Stacey Gresham MD 02/19/2025 11:48 PM > Dictated by White Sugar Boiler I, J Luis Barber MD have personally reviewed and interpreted this examination/study. > Interpreting Provider: J Luis Barber MD on 02/20/2025 1:26 AM us Antonio Leary MD DIAGNOSTIC IMAGING ORDERABLES Final Result * XR Ankle Left 2Vw (02/19/2025 8:10 PM CDT) Anatomical Region Laterality Modality Lower Extremity Digital Radiogra phy 02/19/2025 11:4 8 PM CDT Impressions 02/20/2025 1:26 AM CDT IMPRESSION: No acute fracture or dislocation identified. The report was drafted by Stacey Gresham MD (memory care program resident) 02/19/2025 11:49 PM. > Dictated by Satcey Gresham MD 02/19/2025 11:48 PM > Dictated by White Sugar Boiler I, J Luis Barber MD have personally reviewed and interpreted this examination/study. > Interpreting Provider: J Luis Barber MD on 02/20/2025 1:26 AM Narrative 02/20/2025 1:26 AM CDT PROCEDURE: XR FOOT LEFT 2VW, XR KNEE LEFT 2VW OR LESS, XR ANKLE LEFT 2VW, DATE/TIME OF EXAM: 02/19/2025 8:11 PM, LOCATION [facility] INDICATION: W19.XXXA: Fall, initial encounter R00.0: Tachycardia ADDITIONAL CLINICAL INFORMATION: Ordering Provider Reason For Exam: possible fx COMPARISON: None. FINDINGS: Left knee: The osseous structures are intact and well aligned without acute fracture or dislocation. The knee joint space is preserved. No joint effusion is seen. Bone density and texture are normal. Left ankle: The osseous structures are intact and well aligned without acute fracture or dislocation. The ankle mortise is intact. Bone density and texture are normal. No soft tissue swelling is present. Left foot: The osseous structures are intact and well aligned without acute fracture or dislocation. The joint spaces are preserved. Bone density and texture are normal. No soft tissue swelling is present. There is a bipartite hallux fibular sesamoid. Procedure Note J Luis Barber MD - 02/20/2025 PROCEDURE: XR FOOT LEFT 2VW, XR KNEE LEFT 2VW OR LESS, XR ANKLE [id number], DATE/TIME OF EXAM: 02/19/2025 8:11 PM, LOCATION [facility] INDICATION: W19.XXXA: Fall, initial encounter R00.0: Tachycardia ADDITIONAL CLINICAL INFORMATION: Ordering Provider Reason For Exam: possible fx COMPARISON: None. FINDINGS: Left knee: The osseous structures are intact and well aligned without acutefracture or dislocation. The knee joint space is preserved. No joint effusion is seen. Bone density and texture are normal. Left ankle: The osseous structures are intact and well aligned without acutefracture or dislocation. The ankle mortise is intact. Bone density and textureare normal. No soft tissue swelling is present. Left foot: The osseous structures are intact and well aligned without acutefracture or dislocation. The joint spaces are preserved. Bone density and texture are normal. No soft tissue swelling is present. There is a bipartitehallux fibular sesamoid. IMPRESSION: No acute fracture or dislocation identified. The report was drafted by Stacey Gresham MD (memory care program resident) 02/19/2025 11:49 PM. > Dictated by Stacey Gresham MD 02/19/2025 11:48 PM > Dictated by White Sugar Boiler I, J Luis Barber MD have personally reviewed and interpreted this examination/study. > Interpreting Provider: J Luis Barber MD on 02/20/2025 1:26 AM us Antonio Leary MD DIAGNOSTIC IMAGING ORDERABLES Final Result * CT CHEST ABDOMEN PELVIS W CONT - Abdomen-pelvis trauma, blunt or penetrating (02/19/2025 7:11 PM CDT) Anatomical Region Laterality Modality Chest, Abdomen, Pelvis Computed Tomography 02/19/2025 8:35 PM CDT Impressions 02/19/2025 8:57 PM CDT Impression: 1.Minimal contusion along the right gluteus. Otherwise, no acute visceral, vascular, or osseus injury identified in the chest, abdomen, or pelvis. 2.Couple pulmonary nodules in the right upper lobe measure 10 mm and 6 mm. Recommend follow-up CT chest in 3-6 months to assess stability. > Dictated by Mj Sullivan MD 02/19/2025 8:35 PM > Dictated by White Sugar Boiler I, Colleen Lockett have personally reviewed and interpreted this examination/study. > Interpreting Provider: Colleen Lockett on 02/19/2025 8:57 PM Narrative 02/19/2025 8:57 PM CDT PROCEDURE: CT CHEST ABDOMEN PELVIS W CONT, DATE/TIME OF EXAM: 02/19/2025 7:14 PM, LOCATION [facility] INDICATION: W19.XXXA: Fall, initial encounter ADDITIONAL CLINICAL INFORMATION: Ordering Provider Reason For Exam: Technologist Note: Additional: COMPARISON: None. TECHNIQUE: CT of the chest, abdomen, and pelvis was performed after the uneventful administration of 100 mL of Isovue 370 intravenous contrast according to standard protocol. IOPAMIDOL 76 % IV SOLN:100 mL Findings: Chest: Lower Neck and Axillae: Normal. Lungs: Mild bilateral dependent atelectasis is present. Couple pulmonary nodules are identified in the right upper lobe measuring 10 mm and 6 mm (series 5 image 40 and 22). No pleural fluid or pneumothorax is present. Heart and Pericardium: The cardiac chambers are normal in size. No pericardial fluid or thickening is present. Mediastinum and Sonya: No enlarged lymph nodes are present. Thoracic Vasculature: No vascular abnormality is present. Abdomen/pelvis: Liver: Normal. Gallbladder and Bile Ducts: The gallbladder is absent. Spleen: Normal. Pancreas: Normal. Adrenals: Normal. Kidneys: Simple cyst in the left kidney. Otherwise, the kidneys are unremarkable. Gastrointestinal: The stomach and visualized loops of small bowel are unremarkable. Mild colonic diverticulosis without evidence of diverticulitis is seen. Normal appendix. Mesentery/Peritoneum/Retroperitoneum: No free intraperitoneal air. No free fluid in the abdomen or pelvis. Bladder: Normal. Reproductive Organs: The prostate is normal. Abdominal Vasculature: Atherosclerotic calcification of the aorta and its branch vessels. Bones: Chronic fractures of the right posterolateral ninth and 10th ribs. No acute fracture. Bone windows demonstrate no suspicious lytic or blastic lesions. Changes throughout the spine. Soft tissues: Small fat-containing umbilical hernia. Minimal contusion along the right gluteus. Procedure Note Colleen Felix MD - 02/19/2025 PROCEDURE: CT CHEST ABDOMEN PELVIS W CONT, DATE/TIME OF EXAM:02/19/2025 7:14 PM, LOCATION [facility] INDICATION: W19.XXXA: Fall, initial encounter ADDITIONAL CLINICAL INFORMATION: Ordering Provider Reason For Exam: Technologist Note: Additional: COMPARISON: None. TECHNIQUE: CT of the chest, abdomen, and pelvis was performed after the uneventful administration of 100 mL of Isovue 370 intravenous contrast according to standard protocol. IOPAMIDOL 76 % IV SOLN:100 mL Findings: Chest: Lower Neck and Axillae: Normal. Lungs: Mild bilateral dependent atelectasis is present. Couple pulmonarynodules are identified in the right upper lobe measuring 10 mm and 6 mm (series5 image 40 and 22). No pleural fluid or pneumothorax is present. Heart and Pericardium: The cardiac chambers are normal in size. No pericardial fluid orthickening is present. Mediastinum and Sonya: No enlarged lymph nodes are present. Thoracic Vasculature: No vascular abnormality is present. Abdomen/pelvis: Liver: Normal. Gallbladder and Bile Ducts: The gallbladder is absent. Spleen: Normal. Pancreas: Normal. Adrenals: Normal. Kidneys: Simple cyst in the left kidney. Otherwise, the kidneys are unremarkable. Gastrointestinal: The stomach and visualized loops of small bowel are unremarkable. Mild colonic diverticulosis without evidence of diverticulitis is seen.Normal appendix. Mesentery/Peritoneum/Retroperitoneum: No free intraperitoneal air. No free fluid in the abdomen or pelvis. Bladder: Normal. Reproductive Organs: The prostate is normal. Abdominal Vasculature: Atherosclerotic calcification of the aorta and its branch vessels. Bones: Chronic fractures of the right posterolateral ninth and 10th ribs. Noacute fracture. Bone windows demonstrate no suspicious lytic or blasticlesions. Changes throughout the spine. Soft tissues: Small fat-containing umbilical hernia. Minimal contusion along the right gluteus. Impression: 1.Minimal contusion along the right gluteus. Otherwise, no acutevisceral, vascular, or osseus injury identified in the chest, abdomen, or pelvis. 2.Couple pulmonary nodules in the right upper lobe measure 10 mm and 6mm. Recommend follow-up CT chest in 3-6 months to assess stability. > Dictated by Mj Sullivan MD 02/19/2025 8:35 PM > Dictated by White Sugar Boiler Colleen Burgos have personally reviewed and interpreted this examination/study. > Interpreting Provider: Colleen Lockett on 02/19/2025 8:57 PM us Antonio Leary MD CT ORDERABLES Final Result * CT LUMBAR SPINE WO CONTRAST - T/L-spine trauma, Spine fracture (02/19/2025 7:11 PM CDT) Anatomical Region Laterality Modality Spine Computed Tomogra phy 02/19/2025 7:22 PM CDT Impressions 02/19/2025 7:47 PM CDT IMPRESSION: 1.No acute intracranial hemorrhage. 2.Please note that CT is insensitive to nonhemorrhagic strokes and MRI of the brain should be considered, if there is clinical concern for acute cerebral infarction or cerebral hypoxemia. 3.There are age indeterminate nasal bone deformities. Please correlate with point tenderness. 4.No evidence of acute fracture in the cervical, thoracic, or lumbar spine. > Interpreting Provider: Kristal Munoz MD on 02/19/2025 7:47 PM Narrative 02/19/2025 7:47 PM CDT PROCEDURE: CT HEAD WO CONTRAST, CT CERVICAL SPINE WO CONTRAST, CT THORACIC SPINE WO CONTRAST, CT LUMBAR SPINE WO CONTRAST, DATE/TIME OF EXAM: 02/19/2025 7:14 PM, LOCATION [facility] INDICATION: W19.XXXA: Fall, initial encounter EXAMINATION: 1.Computed tomography (CT) of the head without contrast 2.CT of the cervical spine without contrast 3.CT of the thoracic spine without contrast 4.CT of the lumbar spine without contrast ADDITIONAL CLINICAL INFORMATION: Ordering Provider Reason For Exam: Fall. Technologist Note: None. Additional: None. TECHNIQUE: CT of the head and cervical spine was performed without contrast according to standard protocol. Reformatted axial, sagittal, and coronal images of the thoracic and lumbar spine were obtained by the technologist from a concurrently performed body CT and sent to the workstation for review. CT dose reduction technique was used, including Automated Exposure Control. COMPARISON: No prior study is available for comparison at the time of this dictation. FINDINGS: Head: No acute intra- or extra-axial fluid collections are identified. The ventricles are of normal size, shape, and morphology. The basilar cisterns are patent. No mass effect or midline shift is seen. The copeland-white matter differentiation is normal. Periventricular white matter hypoattenuation is indicative of chronic small vessel ischemic disease. There is vascular calcification of the carotid siphons. Effacement of the sulci can be a normal variant or represent mild brain edema, in the appropriate clinical setting. Clinical correlation is recommended. No acute calvarial fracture is identified. There is a partially empty sella. Other than an old right lamina papyracea fracture, the orbits appear normal. There is mild paranasal sinus disease. Minimal opacification of a few dependent right mastoid air cells. There is mild sclerosis of the lateral aspect of the mastoid air cells on the right. The mastoid air cells are otherwise grossly clear. There are age indeterminate nasal bone deformities. Please correlate with point tenderness. No soft tissue abnormality is identified. Cervical spine: Minimal anterolisthesis of C2 on C3 and trace anterolisthesis of C3 on C4. Mild dextrocurvature of the cervical spine. The alignment is otherwise maintained. Vertebral bodies are normal in height without evidence of acute fracture. Other than middle atlantoaxial joint osteoarthritis, the craniocervical junction appears normal. There is mild degenerative disc disease. No high-grade central canal stenosis is seen. There are varying degrees of mild facet osteoarthritis. There are varying degrees of mild uncovertebral joint osteoarthritis with the same degree of neural foraminal stenosis at these levels. No soft tissue abnormality is identified. Thoracic spine: Exaggeration of the thoracic kyphosis. Mild levocurvature of the lower thoracic spine. The alignment is otherwise maintained. Bridging osteophytes are likely related to diffuse idiopathic skeletal hyperostosis in the midthoracic spine. Minimal height loss of several midthoracic vertebrae, likely osteoporotic. Mild height loss of the T11 vertebral body without definite fracture lines. The remaining vertebral bodies are normal in height without evidence of acute fracture. There is mild degenerative disc disease. No central canal stenosis is seen. There is mild facet osteoarthritis at multiple levels. There are varying degrees of neural foraminal stenosis at multiple levels. Mild atherosclerotic disease of the descending thoracic aorta. Mild nonspecific prominence of the left adrenal gland more than the right. There is subsegmental atelectasis in the dependent portions of the lung bases. Lumbar spine: Minimal retrolisthesis of L4 on L5. Shallow levocurvature of the lumbar spine. The alignment is otherwise maintained. Vertebral bodies are normal in height without evidence of acute fracture. There is diffuse disc bulge at multiple levels. No high-grade central canal stenosis is seen. There is mild facet osteoarthritis at multiple levels. There are varying degrees of neural foraminal stenosis at multiple levels. Status post cholecystectomy with metallic clips in place. There is atherosclerotic calcification of the abdominal aorta and its branch vessels. Brain injury guidelines: Skull fracture: No Subdural hematoma: No subdural hematoma. Epidural hematoma: No epidural hematoma. Intraparenchymal hemorrhage: No intraparenchymal hemorrhage. Subarachnoid hemorrhage: No subarachnoid hemorrhage. Intraventricular hemorrhage: No. Midline shift: No. Procedure Note Kristal Munoz MD - 02/19/2025 PROCEDURE: CT HEAD WO CONTRAST, CT CERVICAL SPINE WO CONTRAST, CTTHORACIC SPINE WO CONTRAST, CT LUMBAR SPINE WO CONTRAST, DATE/TIME OF EXAM: 02/19/2025 7:14 PM, LOCATION [facility] INDICATION: W19.XXXA: Fall, initial encounter EXAMINATION: 1.Computed tomography (CT) of the head without contrast 2.CT of the cervical spine without contrast 3.CT of the thoracic spine without contrast 4.CT of the lumbar spine without contrast ADDITIONAL CLINICAL INFORMATION: Ordering Provider Reason For Exam: Fall. Technologist Note: None. Additional: None. TECHNIQUE: CT of the head and cervical spine was performed withoutcontrast according to standard protocol. Reformatted axial, sagittal, and coronal images of the thoracic and lumbar spine were obtained by thetechnologist from a concurrently performed body CT and sent to the workstation for review. CT dose reduction technique was used, including AutomatedExposure Control. COMPARISON: No prior study is available for comparison at the time ofthis dictation. FINDINGS: Head: No acute intra- or extra-axial fluid collections are identified. The ventricles are of normal size, shape, and morphology. The basilarcisterns are patent. No mass effect or midline shift is seen. The copeland-whitematter differentiation is normal. Periventricular white matter hypoattenuationis indicative of chronic small vessel ischemic disease. There is vascular calcification of the carotid siphons. Effacement of the sulci can be a normal variant or represent mild brain edema, in the appropriateclinical setting. Clinical correlation is recommended. No acute calvarialfracture is identified. There is a partially empty sella. Other than an old right lamina papyracea fracture, the orbits appear normal. There is mild paranasal sinus disease. Minimal opacification of a few dependent right mastoid air cells. There is mild sclerosis of the lateral aspect of the mastoid air cells on the right. The mastoid air cells are otherwisegrossly clear. There are age indeterminate nasal bone deformities. Pleasecorrelate with point tenderness. No soft tissue abnormality is identified. Cervical spine: Minimal anterolisthesis of C2 on C3 and trace anterolisthesis of C3 onC4. Mild dextrocurvature of the cervical spine. The alignment is otherwise maintained. Vertebral bodies are normal in height without evidence ofacute fracture. Other than middle atlantoaxial joint osteoarthritis, the craniocervical junction appears normal. There is mild degenerative disc disease. No high-grade central canal stenosis is seen. There are varying degrees of mild facet osteoarthritis. There are varying degrees of mild uncovertebral joint osteoarthritis with the same degree of neuralforaminal stenosis at these levels. No soft tissue abnormality is identified. Thoracic spine: Exaggeration of the thoracic kyphosis. Mild levocurvature of the lower thoracic spine. The alignment is otherwise maintained. Bridgingosteophytes are likely related to diffuse idiopathic skeletal hyperostosis in the midthoracic spine. Minimal height loss of several midthoracic vertebrae, likely osteoporotic. Mild height loss of the T11 vertebral body without definite fracture lines. The remaining vertebral bodies are normal in height without evidence of acute fracture. There is mild degenerativedisc disease. No central canal stenosis is seen. There is mild facet osteoarthritis at multiple levels. There are varying degrees of neural foraminal stenosis at multiple levels. Mild atherosclerotic disease ofthe descending thoracic aorta. Mild nonspecific prominence of the leftadrenal gland more than the right. There is subsegmental atelectasis in the dependent portions of the lung bases. Lumbar spine: Minimal retrolisthesis of L4 on L5. Shallow levocurvature of the lumbar spine. The alignment is otherwise maintained. Vertebral bodies arenormal in height without evidence of acute fracture. There is diffuse discbulge at multiple levels. No high-grade central canal stenosis is seen. Thereis mild facet osteoarthritis at multiple levels. There are varying degreesof neural foraminal stenosis at multiple levels. Status postcholecystectomy with metallic clips in place. There is atherosclerotic calcification ofthe abdominal aorta and its branch vessels. Brain injury guidelines: Skull fracture: No Subdural hematoma: No subdural hematoma. Epidural hematoma: No epidural hematoma. Intraparenchymal hemorrhage: No intraparenchymal hemorrhage. Subarachnoid hemorrhage: No subarachnoid hemorrhage. Intraventricular hemorrhage: No. Midline shift: No. IMPRESSION: 1.No acute intracranial hemorrhage. 2.Please note that CT is insensitive to nonhemorrhagic strokes and MRIof the brain should be considered, if there is clinical concern for acute cerebral infarction or cerebral hypoxemia. 3.There are age indeterminate nasal bone deformities. Please correlatewith point tenderness. 4.No evidence of acute fracture in the cervical, thoracic, or lumbarspine. > Interpreting Provider: Kristal Munoz MD on 02/19/2025 7:47 PM Antonio Leary MD CT ORDERABLES Final Result * CT THORACIC SPINE WO CONTRAST - T/L-spine trauma, spine fracture (02/19/2025 7:11 PM CDT) Anatomical Region Laterality Modality Spine Computed Tomogra phy 02/19/2025 7:22 PM CDT Impressions 02/19/2025 7:47 PM CDT IMPRESSION: 1.No acute intracranial hemorrhage. 2.Please note that CT is insensitive to nonhemorrhagic strokes and MRI of the brain should be considered, if there is clinical concern for acute cerebral infarction or cerebral hypoxemia. 3.There are age indeterminate nasal bone deformities. Please correlate with point tenderness. 4.No evidence of acute fracture in the cervical, thoracic, or lumbar spine. > Interpreting Provider: Kristal Munoz MD on 02/19/2025 7:47 PM Narrative 02/19/2025 7:47 PM CDT PROCEDURE: CT HEAD WO CONTRAST, CT CERVICAL SPINE WO CONTRAST, CT THORACIC SPINE WO CONTRAST, CT LUMBAR SPINE WO CONTRAST, DATE/TIME OF EXAM: 02/19/2025 7:14 PM, LOCATION [facility] INDICATION: W19.XXXA: Fall, initial encounter EXAMINATION: 1.Computed tomography (CT) of the head without contrast 2.CT of the cervical spine without contrast 3.CT of the thoracic spine without contrast 4.CT of the lumbar spine without contrast ADDITIONAL CLINICAL INFORMATION: Ordering Provider Reason For Exam: Fall. Technologist Note: None. Additional: None. TECHNIQUE: CT of the head and cervical spine was performed without contrast according to standard protocol. Reformatted axial, sagittal, and coronal images of the thoracic and lumbar spine were obtained by the technologist from a concurrently performed body CT and sent to the workstation for review. CT dose reduction technique was used, including Automated Exposure Control. COMPARISON: No prior study is available for comparison at the time of this dictation. FINDINGS: Head: No acute intra- or extra-axial fluid collections are identified. The ventricles are of normal size, shape, and morphology. The basilar cisterns are patent. No mass effect or midline shift is seen. The copeland-white matter differentiation is normal. Periventricular white matter hypoattenuation is indicative of chronic small vessel ischemic disease. There is vascular calcification of the carotid siphons. Effacement of the sulci can be a normal variant or represent mild brain edema, in the appropriate clinical setting. Clinical correlation is recommended. No acute calvarial fracture is identified. There is a partially empty sella. Other than an old right lamina papyracea fracture, the orbits appear normal. There is mild paranasal sinus disease. Minimal opacification of a few dependent right mastoid air cells. There is mild sclerosis of the lateral aspect of the mastoid air cells on the right. The mastoid air cells are otherwise grossly clear. There are age indeterminate nasal bone deformities. Please correlate with point tenderness. No soft tissue abnormality is identified. Cervical spine: Minimal anterolisthesis of C2 on C3 and trace anterolisthesis of C3 on C4. Mild dextrocurvature of the cervical spine. The alignment is otherwise maintained. Vertebral bodies are normal in height without evidence of acute fracture. Other than middle atlantoaxial joint osteoarthritis, the craniocervical junction appears normal. There is mild degenerative disc disease. No high-grade central canal stenosis is seen. There are varying degrees of mild facet osteoarthritis. There are varying degrees of mild uncovertebral joint osteoarthritis with the same degree of neural foraminal stenosis at these levels. No soft tissue abnormality is identified. Thoracic spine: Exaggeration of the thoracic kyphosis. Mild levocurvature of the lower thoracic spine. The alignment is otherwise maintained. Bridging osteophytes are likely related to diffuse idiopathic skeletal hyperostosis in the midthoracic spine. Minimal height loss of several midthoracic vertebrae, likely osteoporotic. Mild height loss of the T11 vertebral body without definite fracture lines. The remaining vertebral bodies are normal in height without evidence of acute fracture. There is mild degenerative disc disease. No central canal stenosis is seen. There is mild facet osteoarthritis at multiple levels. There are varying degrees of neural foraminal stenosis at multiple levels. Mild atherosclerotic disease of the descending thoracic aorta. Mild nonspecific prominence of the left adrenal gland more than the right. There is subsegmental atelectasis in the dependent portions of the lung bases. Lumbar spine: Minimal retrolisthesis of L4 on L5. Shallow levocurvature of the lumbar spine. The alignment is otherwise maintained. Vertebral bodies are normal in height without evidence of acute fracture. There is diffuse disc bulge at multiple levels. No high-grade central canal stenosis is seen. There is mild facet osteoarthritis at multiple levels. There are varying degrees of neural foraminal stenosis at multiple levels. Status post cholecystectomy with metallic clips in place. There is atherosclerotic calcification of the abdominal aorta and its branch vessels. Brain injury guidelines: Skull fracture: No Subdural hematoma: No subdural hematoma. Epidural hematoma: No epidural hematoma. Intraparenchymal hemorrhage: No intraparenchymal hemorrhage. Subarachnoid hemorrhage: No subarachnoid hemorrhage. Intraventricular hemorrhage: No. Midline shift: No. Procedure Note Kristal Munoz MD - 02/19/2025 PROCEDURE: CT HEAD WO CONTRAST, CT CERVICAL SPINE WO CONTRAST, CTTHORACIC SPINE WO CONTRAST, CT LUMBAR SPINE WO CONTRAST, DATE/TIME OF EXAM: 02/19/2025 7:14 PM, LOCATION [facility] INDICATION: W19.XXXA: Fall, initial encounter EXAMINATION: 1.Computed tomography (CT) of the head without contrast 2.CT of the cervical spine without contrast 3.CT of the thoracic spine without contrast 4.CT of the lumbar spine without contrast ADDITIONAL CLINICAL INFORMATION: Ordering Provider Reason For Exam: Fall. Technologist Note: None. Additional: None. TECHNIQUE: CT of the head and cervical spine was performed withoutcontrast according to standard protocol. Reformatted axial, sagittal, and coronal images of the thoracic and lumbar spine were obtained by thetechnologist from a concurrently performed body CT and sent to the workstation for review. CT dose reduction technique was used, including AutomatedExposure Control. COMPARISON: No prior study is available for comparison at the time ofthis dictation. FINDINGS: Head: No acute intra- or extra-axial fluid collections are identified. The ventricles are of normal size, shape, and morphology. The basilarcisterns are patent. No mass effect or midline shift is seen. The copeland-whitematter differentiation is normal. Periventricular white matter hypoattenuationis indicative of chronic small vessel ischemic disease. There is vascular calcification of the carotid siphons. Effacement of the sulci can be a normal variant or represent mild brain edema, in the appropriateclinical setting. Clinical correlation is recommended. No acute calvarialfracture is identified. There is a partially empty sella. Other than an old right lamina papyracea fracture, the orbits appear normal. There is mild paranasal sinus disease. Minimal opacification of a few dependent right mastoid air cells. There is mild sclerosis of the lateral aspect of the mastoid air cells on the right. The mastoid air cells are otherwisegrossly clear. There are age indeterminate nasal bone deformities. Pleasecorrelate with point tenderness. No soft tissue abnormality is identified. Cervical spine: Minimal anterolisthesis of C2 on C3 and trace anterolisthesis of C3 onC4. Mild dextrocurvature of the cervical spine. The alignment is otherwise maintained. Vertebral bodies are normal in height without evidence ofacute fracture. Other than middle atlantoaxial joint osteoarthritis, the craniocervical junction appears normal. There is mild degenerative disc disease. No high-grade central canal stenosis is seen. There are varying degrees of mild facet osteoarthritis. There are varying degrees of mild uncovertebral joint osteoarthritis with the same degree of neuralforaminal stenosis at these levels. No soft tissue abnormality is identified. Thoracic spine: Exaggeration of the thoracic kyphosis. Mild levocurvature of the lower thoracic spine. The alignment is otherwise maintained. Bridgingosteophytes are likely related to diffuse idiopathic skeletal hyperostosis in the midthoracic spine. Minimal height loss of several midthoracic vertebrae, likely osteoporotic. Mild height loss of the T11 vertebral body without definite fracture lines. The remaining vertebral bodies are normal in height without evidence of acute fracture. There is mild degenerativedisc disease. No central canal stenosis is seen. There is mild facet osteoarthritis at multiple levels. There are varying degrees of neural foraminal stenosis at multiple levels. Mild atherosclerotic disease ofthe descending thoracic aorta. Mild nonspecific prominence of the leftadrenal gland more than the right. There is subsegmental atelectasis in the dependent portions of the lung bases. Lumbar spine: Minimal retrolisthesis of L4 on L5. Shallow levocurvature of the lumbar spine. The alignment is otherwise maintained. Vertebral bodies arenormal in height without evidence of acute fracture. There is diffuse discbulge at multiple levels. No high-grade central canal stenosis is seen. Thereis mild facet osteoarthritis at multiple levels. There are varying degreesof neural foraminal stenosis at multiple levels. Status postcholecystectomy with metallic clips in place. There is atherosclerotic calcification ofthe abdominal aorta and its branch vessels. Brain injury guidelines: Skull fracture: No Subdural hematoma: No subdural hematoma. Epidural hematoma: No epidural hematoma. Intraparenchymal hemorrhage: No intraparenchymal hemorrhage. Subarachnoid hemorrhage: No subarachnoid hemorrhage. Intraventricular hemorrhage: No. Midline shift: No. IMPRESSION: 1.No acute intracranial hemorrhage. 2.Please note that CT is insensitive to nonhemorrhagic strokes and MRIof the brain should be considered, if there is clinical concern for acute cerebral infarction or cerebral hypoxemia. 3.There are age indeterminate nasal bone deformities. Please correlatewith point tenderness. 4.No evidence of acute fracture in the cervical, thoracic, or lumbarspine. > Interpreting Provider: Kristal Munoz MD on 02/19/2025 7:47 PM Antonio Leary MD CT ORDERABLES Final Result * CT CERVICAL SPINE WO CONTRAST - C-Spine Trauma, Spine fracture (02/19/2025 7:11 PM CDT) Anatomical Region Laterality Modality Spine Computed Tomogra phy 02/19/2025 7:22 PM CDT Impressions 02/19/2025 7:47 PM CDT IMPRESSION: 1.No acute intracranial hemorrhage. 2.Please note that CT is insensitive to nonhemorrhagic strokes and MRI of the brain should be considered, if there is clinical concern for acute cerebral infarction or cerebral hypoxemia. 3.There are age indeterminate nasal bone deformities. Please correlate with point tenderness. 4.No evidence of acute fracture in the cervical, thoracic, or lumbar spine. > Interpreting Provider: Kristal Munoz MD on 02/19/2025 7:47 PM Narrative 02/19/2025 7:47 PM CDT PROCEDURE: CT HEAD WO CONTRAST, CT CERVICAL SPINE WO CONTRAST, CT THORACIC SPINE WO CONTRAST, CT LUMBAR SPINE WO CONTRAST, DATE/TIME OF EXAM: 02/19/2025 7:14 PM, LOCATION [facility] INDICATION: W19.XXXA: Fall, initial encounter EXAMINATION: 1.Computed tomography (CT) of the head without contrast 2.CT of the cervical spine without contrast 3.CT of the thoracic spine without contrast 4.CT of the lumbar spine without contrast ADDITIONAL CLINICAL INFORMATION: Ordering Provider Reason For Exam: Fall. Technologist Note: None. Additional: None. TECHNIQUE: CT of the head and cervical spine was performed without contrast according to standard protocol. Reformatted axial, sagittal, and coronal images of the thoracic and lumbar spine were obtained by the technologist from a concurrently performed body CT and sent to the workstation for review. CT dose reduction technique was used, including Automated Exposure Control. COMPARISON: No prior study is available for comparison at the time of this dictation. FINDINGS: Head: No acute intra- or extra-axial fluid collections are identified. The ventricles are of normal size, shape, and morphology. The basilar cisterns are patent. No mass effect or midline shift is seen. The copeland-white matter differentiation is normal. Periventricular white matter hypoattenuation is indicative of chronic small vessel ischemic disease. There is vascular calcification of the carotid siphons. Effacement of the sulci can be a normal variant or represent mild brain edema, in the appropriate clinical setting. Clinical correlation is recommended. No acute calvarial fracture is identified. There is a partially empty sella. Other than an old right lamina papyracea fracture, the orbits appear normal. There is mild paranasal sinus disease. Minimal opacification of a few dependent right mastoid air cells. There is mild sclerosis of the lateral aspect of the mastoid air cells on the right. The mastoid air cells are otherwise grossly clear. There are age indeterminate nasal bone deformities. Please correlate with point tenderness. No soft tissue abnormality is identified. Cervical spine: Minimal anterolisthesis of C2 on C3 and trace anterolisthesis of C3 on C4. Mild dextrocurvature of the cervical spine. The alignment is otherwise maintained. Vertebral bodies are normal in height without evidence of acute fracture. Other than middle atlantoaxial joint osteoarthritis, the craniocervical junction appears normal. There is mild degenerative disc disease. No high-grade central canal stenosis is seen. There are varying degrees of mild facet osteoarthritis. There are varying degrees of mild uncovertebral joint osteoarthritis with the same degree of neural foraminal stenosis at these levels. No soft tissue abnormality is identified. Thoracic spine: Exaggeration of the thoracic kyphosis. Mild levocurvature of the lower thoracic spine. The alignment is otherwise maintained. Bridging osteophytes are likely related to diffuse idiopathic skeletal hyperostosis in the midthoracic spine. Minimal height loss of several midthoracic vertebrae, likely osteoporotic. Mild height loss of the T11 vertebral body without definite fracture lines. The remaining vertebral bodies are normal in height without evidence of acute fracture. There is mild degenerative disc disease. No central canal stenosis is seen. There is mild facet osteoarthritis at multiple levels. There are varying degrees of neural foraminal stenosis at multiple levels. Mild atherosclerotic disease of the descending thoracic aorta. Mild nonspecific prominence of the left adrenal gland more than the right. There is subsegmental atelectasis in the dependent portions of the lung bases. Lumbar spine: Minimal retrolisthesis of L4 on L5. Shallow levocurvature of the lumbar spine. The alignment is otherwise maintained. Vertebral bodies are normal in height without evidence of acute fracture. There is diffuse disc bulge at multiple levels. No high-grade central canal stenosis is seen. There is mild facet osteoarthritis at multiple levels. There are varying degrees of neural foraminal stenosis at multiple levels. Status post cholecystectomy with metallic clips in place. There is atherosclerotic calcification of the abdominal aorta and its branch vessels. Brain injury guidelines: Skull fracture: No Subdural hematoma: No subdural hematoma. Epidural hematoma: No epidural hematoma. Intraparenchymal hemorrhage: No intraparenchymal hemorrhage. Subarachnoid hemorrhage: No subarachnoid hemorrhage. Intraventricular hemorrhage: No. Midline shift: No. Procedure Note Kristal Munoz MD - 02/19/2025 PROCEDURE: CT HEAD WO CONTRAST, CT CERVICAL SPINE WO CONTRAST, CTTHORACIC SPINE WO CONTRAST, CT LUMBAR SPINE WO CONTRAST, DATE/TIME OF EXAM: 02/19/2025 7:14 PM, LOCATION [facility] INDICATION: W19.XXXA: Fall, initial encounter EXAMINATION: 1.Computed tomography (CT) of the head without contrast 2.CT of the cervical spine without contrast 3.CT of the thoracic spine without contrast 4.CT of the lumbar spine without contrast ADDITIONAL CLINICAL INFORMATION: Ordering Provider Reason For Exam: Fall. Technologist Note: None. Additional: None. TECHNIQUE: CT of the head and cervical spine was performed withoutcontrast according to standard protocol. Reformatted axial, sagittal, and coronal images of the thoracic and lumbar spine were obtained by thetechnologist from a concurrently performed body CT and sent to the workstation for review. CT dose reduction technique was used, including AutomatedExposure Control. COMPARISON: No prior study is available for comparison at the time ofthis dictation. FINDINGS: Head: No acute intra- or extra-axial fluid collections are identified. The ventricles are of normal size, shape, and morphology. The basilarcisterns are patent. No mass effect or midline shift is seen. The copeland-whitematter differentiation is normal. Periventricular white matter hypoattenuationis indicative of chronic small vessel ischemic disease. There is vascular calcification of the carotid siphons. Effacement of the sulci can be a normal variant or represent mild brain edema, in the appropriateclinical setting. Clinical correlation is recommended. No acute calvarialfracture is identified. There is a partially empty sella. Other than an old right lamina papyracea fracture, the orbits appear normal. There is mild paranasal sinus disease. Minimal opacification of a few dependent right mastoid air cells. There is mild sclerosis of the lateral aspect of the mastoid air cells on the right. The mastoid air cells are otherwisegrossly clear. There are age indeterminate nasal bone deformities. Pleasecorrelate with point tenderness. No soft tissue abnormality is identified. Cervical spine: Minimal anterolisthesis of C2 on C3 and trace anterolisthesis of C3 onC4. Mild dextrocurvature of the cervical spine. The alignment is otherwise maintained. Vertebral bodies are normal in height without evidence ofacute fracture. Other than middle atlantoaxial joint osteoarthritis, the craniocervical junction appears normal. There is mild degenerative disc disease. No high-grade central canal stenosis is seen. There are varying degrees of mild facet osteoarthritis. There are varying degrees of mild uncovertebral joint osteoarthritis with the same degree of neuralforaminal stenosis at these levels. No soft tissue abnormality is identified. Thoracic spine: Exaggeration of the thoracic kyphosis. Mild levocurvature of the lower thoracic spine. The alignment is otherwise maintained. Bridgingosteophytes are likely related to diffuse idiopathic skeletal hyperostosis in the midthoracic spine. Minimal height loss of several midthoracic vertebrae, likely osteoporotic. Mild height loss of the T11 vertebral body without definite fracture lines. The remaining vertebral bodies are normal in height without evidence of acute fracture. There is mild degenerativedisc disease. No central canal stenosis is seen. There is mild facet osteoarthritis at multiple levels. There are varying degrees of neural foraminal stenosis at multiple levels. Mild atherosclerotic disease ofthe descending thoracic aorta. Mild nonspecific prominence of the leftadrenal gland more than the right. There is subsegmental atelectasis in the dependent portions of the lung bases. Lumbar spine: Minimal retrolisthesis of L4 on L5. Shallow levocurvature of the lumbar spine. The alignment is otherwise maintained. Vertebral bodies arenormal in height without evidence of acute fracture. There is diffuse discbulge at multiple levels. No high-grade central canal stenosis is seen. Thereis mild facet osteoarthritis at multiple levels. There are varying degreesof neural foraminal stenosis at multiple levels. Status postcholecystectomy with metallic clips in place. There is atherosclerotic calcification ofthe abdominal aorta and its branch vessels. Brain injury guidelines: Skull fracture: No Subdural hematoma: No subdural hematoma. Epidural hematoma: No epidural hematoma. Intraparenchymal hemorrhage: No intraparenchymal hemorrhage. Subarachnoid hemorrhage: No subarachnoid hemorrhage. Intraventricular hemorrhage: No. Midline shift: No. IMPRESSION: 1.No acute intracranial hemorrhage. 2.Please note that CT is insensitive to nonhemorrhagic strokes and MRIof the brain should be considered, if there is clinical concern for acute cerebral infarction or cerebral hypoxemia. 3.There are age indeterminate nasal bone deformities. Please correlatewith point tenderness. 4.No evidence of acute fracture in the cervical, thoracic, or lumbarspine. > Interpreting Provider: Kristal Munoz MD on 02/19/2025 7:47 PM us Antonio Leary MD CT ORDERABLES Final Result * CT HEAD WO CONTRAST - Head Trauma, CSF leak, mental status changes (02/19/2025 7:11 PM CDT) Anatomical Region Laterality Modality Head Computed Tomogra phy 02/19/2025 7:22 PM CDT Impressions 02/19/2025 7:47 PM CDT IMPRESSION: 1.No acute intracranial hemorrhage. 2.Please note that CT is insensitive to nonhemorrhagic strokes and MRI of the brain should be considered, if there is clinical concern for acute cerebral infarction or cerebral hypoxemia. 3.There are age indeterminate nasal bone deformities. Please correlate with point tenderness. 4.No evidence of acute fracture in the cervical, thoracic, or lumbar spine. > Interpreting Provider: Kristal Munoz MD on 02/19/2025 7:47 PM Narrative 02/19/2025 7:47 PM CDT PROCEDURE: CT HEAD WO CONTRAST, CT CERVICAL SPINE WO CONTRAST, CT THORACIC SPINE WO CONTRAST, CT LUMBAR SPINE WO CONTRAST, DATE/TIME OF EXAM: 02/19/2025 7:14 PM, LOCATION [facility] INDICATION: W19.XXXA: Fall, initial encounter EXAMINATION: 1.Computed tomography (CT) of the head without contrast 2.CT of the cervical spine without contrast 3.CT of the thoracic spine without contrast 4.CT of the lumbar spine without contrast ADDITIONAL CLINICAL INFORMATION: Ordering Provider Reason For Exam: Fall. Technologist Note: None. Additional: None. TECHNIQUE: CT of the head and cervical spine was performed without contrast according to standard protocol. Reformatted axial, sagittal, and coronal images of the thoracic and lumbar spine were obtained by the technologist from a concurrently performed body CT and sent to the workstation for review. CT dose reduction technique was used, including Automated Exposure Control. COMPARISON: No prior study is available for comparison at the time of this dictation. FINDINGS: Head: No acute intra- or extra-axial fluid collections are identified. The ventricles are of normal size, shape, and morphology. The basilar cisterns are patent. No mass effect or midline shift is seen. The copeland-white matter differentiation is normal. Periventricular white matter hypoattenuation is indicative of chronic small vessel ischemic disease. There is vascular calcification of the carotid siphons. Effacement of the sulci can be a normal variant or represent mild brain edema, in the appropriate clinical setting. Clinical correlation is recommended. No acute calvarial fracture is identified. There is a partially empty sella. Other than an old right lamina papyracea fracture, the orbits appear normal. There is mild paranasal sinus disease. Minimal opacification of a few dependent right mastoid air cells. There is mild sclerosis of the lateral aspect of the mastoid air cells on the right. The mastoid air cells are otherwise grossly clear. There are age indeterminate nasal bone deformities. Please correlate with point tenderness. No soft tissue abnormality is identified. Cervical spine: Minimal anterolisthesis of C2 on C3 and trace anterolisthesis of C3 on C4. Mild dextrocurvature of the cervical spine. The alignment is otherwise maintained. Vertebral bodies are normal in height without evidence of acute fracture. Other than middle atlantoaxial joint osteoarthritis, the craniocervical junction appears normal. There is mild degenerative disc disease. No high-grade central canal stenosis is seen. There are varying degrees of mild facet osteoarthritis. There are varying degrees of mild uncovertebral joint osteoarthritis with the same degree of neural foraminal stenosis at these levels. No soft tissue abnormality is identified. Thoracic spine: Exaggeration of the thoracic kyphosis. Mild levocurvature of the lower thoracic spine. The alignment is otherwise maintained. Bridging osteophytes are likely related to diffuse idiopathic skeletal hyperostosis in the midthoracic spine. Minimal height loss of several midthoracic vertebrae, likely osteoporotic. Mild height loss of the T11 vertebral body without definite fracture lines. The remaining vertebral bodies are normal in height without evidence of acute fracture. There is mild degenerative disc disease. No central canal stenosis is seen. There is mild facet osteoarthritis at multiple levels. There are varying degrees of neural foraminal stenosis at multiple levels. Mild atherosclerotic disease of the descending thoracic aorta. Mild nonspecific prominence of the left adrenal gland more than the right. There is subsegmental atelectasis in the dependent portions of the lung bases. Lumbar spine: Minimal retrolisthesis of L4 on L5. Shallow levocurvature of the lumbar spine. The alignment is otherwise maintained. Vertebral bodies are normal in height without evidence of acute fracture. There is diffuse disc bulge at multiple levels. No high-grade central canal stenosis is seen. There is mild facet osteoarthritis at multiple levels. There are varying degrees of neural foraminal stenosis at multiple levels. Status post cholecystectomy with metallic clips in place. There is atherosclerotic calcification of the abdominal aorta and its branch vessels. Brain injury guidelines: Skull fracture: No Subdural hematoma: No subdural hematoma. Epidural hematoma: No epidural hematoma. Intraparenchymal hemorrhage: No intraparenchymal hemorrhage. Subarachnoid hemorrhage: No subarachnoid hemorrhage. Intraventricular hemorrhage: No. Midline shift: No. Procedure Note Kristal Munoz MD - 02/19/2025 PROCEDURE: CT HEAD WO CONTRAST, CT CERVICAL SPINE WO CONTRAST, CTTHORACIC SPINE WO CONTRAST, CT LUMBAR SPINE WO CONTRAST, DATE/TIME OF EXAM: 02/19/2025 7:14 PM, LOCATION [facility] INDICATION: W19.XXXA: Fall, initial encounter EXAMINATION: 1.Computed tomography (CT) of the head without contrast 2.CT of the cervical spine without contrast 3.CT of the thoracic spine without contrast 4.CT of the lumbar spine without contrast ADDITIONAL CLINICAL INFORMATION: Ordering Provider Reason For Exam: Fall. Technologist Note: None. Additional: None. TECHNIQUE: CT of the head and cervical spine was performed withoutcontrast according to standard protocol. Reformatted axial, sagittal, and coronal images of the thoracic and lumbar spine were obtained by thetechnologist from a concurrently performed body CT and sent to the workstation for review. CT dose reduction technique was used, including AutomatedExposure Control. COMPARISON: No prior study is available for comparison at the time ofthis dictation. FINDINGS: Head: No acute intra- or extra-axial fluid collections are identified. The ventricles are of normal size, shape, and morphology. The basilarcisterns are patent. No mass effect or midline shift is seen. The copeland-whitematter differentiation is normal. Periventricular white matter hypoattenuationis indicative of chronic small vessel ischemic disease. There is vascular calcification of the carotid siphons. Effacement of the sulci can be a normal variant or represent mild brain edema, in the appropriateclinical setting. Clinical correlation is recommended. No acute calvarialfracture is identified. There is a partially empty sella. Other than an old right lamina papyracea fracture, the orbits appear normal. There is mild paranasal sinus disease. Minimal opacification of a few dependent right mastoid air cells. There is mild sclerosis of the lateral aspect of the mastoid air cells on the right. The mastoid air cells are otherwisegrossly clear. There are age indeterminate nasal bone deformities. Pleasecorrelate with point tenderness. No soft tissue abnormality is identified. Cervical spine: Minimal anterolisthesis of C2 on C3 and trace anterolisthesis of C3 onC4. Mild dextrocurvature of the cervical spine. The alignment is otherwise maintained. Vertebral bodies are normal in height without evidence ofacute fracture. Other than middle atlantoaxial joint osteoarthritis, the craniocervical junction appears normal. There is mild degenerative disc disease. No high-grade central canal stenosis is seen. There are varying degrees of mild facet osteoarthritis. There are varying degrees of mild uncovertebral joint osteoarthritis with the same degree of neuralforaminal stenosis at these levels. No soft tissue abnormality is identified. Thoracic spine: Exaggeration of the thoracic kyphosis. Mild levocurvature of the lower thoracic spine. The alignment is otherwise maintained. Bridgingosteophytes are likely related to diffuse idiopathic skeletal hyperostosis in the midthoracic spine. Minimal height loss of several midthoracic vertebrae, likely osteoporotic. Mild height loss of the T11 vertebral body without definite fracture lines. The remaining vertebral bodies are normal in height without evidence of acute fracture. There is mild degenerativedisc disease. No central canal stenosis is seen. There is mild facet osteoarthritis at multiple levels. There are varying degrees of neural foraminal stenosis at multiple levels. Mild atherosclerotic disease ofthe descending thoracic aorta. Mild nonspecific prominence of the leftadrenal gland more than the right. There is subsegmental atelectasis in the dependent portions of the lung bases. Lumbar spine: Minimal retrolisthesis of L4 on L5. Shallow levocurvature of the lumbar spine. The alignment is otherwise maintained. Vertebral bodies arenormal in height without evidence of acute fracture. There is diffuse discbulge at multiple levels. No high-grade central canal stenosis is seen. Thereis mild facet osteoarthritis at multiple levels. There are varying degreesof neural foraminal stenosis at multiple levels. Status postcholecystectomy with metallic clips in place. There is atherosclerotic calcification ofthe abdominal aorta and its branch vessels. Brain injury guidelines: Skull fracture: No Subdural hematoma: No subdural hematoma. Epidural hematoma: No epidural hematoma. Intraparenchymal hemorrhage: No intraparenchymal hemorrhage. Subarachnoid hemorrhage: No subarachnoid hemorrhage. Intraventricular hemorrhage: No. Midline shift: No. IMPRESSION: 1.No acute intracranial hemorrhage. 2.Please note that CT is insensitive to nonhemorrhagic strokes and MRIof the brain should be considered, if there is clinical concern for acute cerebral infarction or cerebral hypoxemia. 3.There are age indeterminate nasal bone deformities. Please correlatewith point tenderness. 4.No evidence of acute fracture in the cervical, thoracic, or lumbarspine. > Interpreting Provider: Kristal Munoz MD on 02/19/2025 7:47 PM Antonio Leary MD CT ORDERABLES Final Result * XR CHEST 1VW PORTABLE (02/19/2025 6:48 PM CDT) Anatomical Region Laterality Modality Chest Digital Radiogra phy 02/19/2025 9:44 PM CDT Narrative 02/20/2025 1:21 AM CDT PROCEDURE: XR CHEST 1VW PORTABLE, DATE/TIME OF EXAM: 02/19/2025 6:48 PM, LOCATION [facility] INDICATION: W19.XXXA: Fall, initial encounter COMPARISON: None. FINDINGS/IMPRESSION: There is no focal consolidation, pleural effusion, or pneumothorax.The cardiomediastinal silhouette is normal. No displaced fractures identified. > Dictated by Cash Fung MD (residential assistant). > Dictated by Cash Fung MD 02/19/2025 9:44 PM > Dictated by White Sugar Boiler I, J Luis Barber MD have personally reviewed and interpreted this examination/study. > Interpreting Provider: J Luis Barber MD on 02/20/2025 1:21 AM Procedure Note J Luis Barber MD - 02/20/2025 PROCEDURE: XR CHEST 1VW PORTABLE, DATE/TIME OF EXAM: 02/19/2025 6:48PM, LOCATION [facility] INDICATION: W19.XXXA: Fall, initial encounter COMPARISON: None. FINDINGS/IMPRESSION: There is no focal consolidation, pleural effusion, or pneumothorax.The cardiomediastinal silhouette is normal. No displaced fracturesidentified. > Dictated by Cash Fung MD (residential assistant). > Dictated by Cash Fung MD 02/19/2025 9:44 PM > Dictated by White Sugar Boiler I, J Luis Barber MD have personally reviewed and interpreted this examination/study. > Interpreting Provider: J Luis Barber MD on 02/20/2025 1:21 AM us Antonio Leary MD DIAGNOSTIC IMAGING ORDERABLES Final Result * XR PELVIS 1 OR 2VW (02/19/2025 6:48 PM CDT) Anatomical Region Laterality Modality Pelvis Digital Radiogra phy 02/19/2025 9:45 PM CDT Impressions 02/20/2025 1:22 AM CDT IMPRESSION: No acute fracture identified. Report dictated by Cash Fung MD, MD (residential assistant). > Dictated by Cash Fung MD 02/19/2025 9:45 PM > Dictated by White Sugar Boiler I, J Luis Barbre MD have personally reviewed and interpreted this examination/study. > Interpreting Provider: J Luis Barber MD on 02/20/2025 1:22 AM Narrative 02/20/2025 1:22 AM CDT PROCEDURE: XR PELVIS 1 OR 2VW, DATE/TIME OF EXAM: 02/19/2025 6:48 PM, LOCATION [facility] INDICATION: W19.XXXA: Fall, initial encounter ADDITIONAL CLINICAL INFORMATION: Ordering Provider Reason For Exam: Technologist Note: Additional: COMPARISON: None. FINDINGS: No acute fracture is identified. The femoral heads appear well-seated within their respective acetabula. The pubic symphysis is intact. Bone density and texture are normal. The sacroiliac joints are normal. Procedure Note J Luis Barber MD - 02/20/2025 PROCEDURE: XR PELVIS 1 OR 2VW, DATE/TIME OF EXAM: 02/19/2025 6:48 PM, LOCATION [facility] INDICATION: W19.XXXA: Fall, initial encounter ADDITIONAL CLINICAL INFORMATION: Ordering Provider Reason For Exam: Technologist Note: Additional: COMPARISON: None. FINDINGS: No acute fracture is identified. The femoral heads appear well-seated within their respective acetabula. The pubic symphysis is intact. Bone density and texture are normal. The sacroiliac joints are normal. IMPRESSION: No acute fracture identified. Report dictated by Cash Fung MD, MD (residential assistant). > Dictated by Cash Fung MD 02/19/2025 9:45 PM > Dictated by White Sugar Boiler I, J Luis Barber MD have personally reviewed and interpreted this examination/study. > Interpreting Provider: J Luis Barber MD on 02/20/2025 1:22 AM us Antonio Leary MD DIAGNOSTIC IMAGING ORDERABLES Final Result * TEG 6 GLOBAL HEMOSTASIS W/ LYSIS (02/19/2025 6:46 PM CDT) Citrated Kaolin R (Reaction Time) 6.1 4.6 - 9.1 min 02/19/2025 8:06 PM CDT [facility] Citrated Kaolin LY30 (Lysis) 0.7 0.0 - 2.6 % 02/19/2025 8:06 PM CDT [facility] Citrated Functional Fibrinogen MA (Max Amplitude) 15.5 15.0 - 32.0 mm 02/19/2025 8:06 PM CDT [facility] Citrated RapidTEG MA (Max Amplitude) 56.5 52.0 - 70.0 mm 02/19/2025 8:06 PM CDT [facility] Blood BLOOD SPECIMEN / Unknown Venipuncture / Unknown 02/19/2025 6:46 PM CDT 02/19/2025 7:03 PM CDT us Antonio Leary MD LAB - HEMATOLOGY ORDERABLES F inal Result [facility] [address] [place] [id number], [facility] [place] [phone] * (ABNORMAL) TEG 6S PLATELET MAPPING (02/19/2025 6:46 PM CDT) TEGPLM (Max Amplitude) Koalin 56.9 53.0 - 68.0 mm 02/19/2025 8:29 PM CDT [facility] TEGPLM (Max Amplitude) ACTF 4.5 2.0 - 19.0 mm 02/19/2025 8:29 PM CDT [facility] TEGPLM (Max Amplitude) ADP 29.5(L) 45.0 - 69.0 mm 02/19/2025 8:29 PM CDT [facility] Comment:ADP MA below normal range. Inhibition present. TEGPLM (Max Amplitude) AA 32.4(L) 51.0 - 71.0 mm 02/19/2025 8:29 PM T [facility] Comment:AA MA below normal r magdalene. Inhibition present. TEGPLM %Inhibition ADP 52.3(H) 0.0 - 17.0 % 02/19/2025 8:29 PM T [facility] TEGPLM %Inhibition AA 46.8(H) 0.0 - 11.0 % 02/19/2025 8:29 PM T [facility] TEGPLM %Aggregation ADP 47.7(L) 83.0 - 100.0 % 02/19/2025 8:29 PM T [facility] TEGPLM % Aggregation AA 53.2(L) 89.0 - 100.0 % 02/19/2025 8:29 PM CDT [facility] Blood BLOOD SPECIMEN / Unknown Venipuncture / Unknown 02/19/2025 6:46 PM CDT 02/19/2025 7:03 PM CDT Antonio Leary MD LAB - HEMATOLOGY ORDERABLES F inal Result Performing Organization Address City/[facility]/ZIP Co de Phone Number [facility] [address] [place] [address], [place] [phone] * TYPE + SCREEN PANEL (02/19/2025 6:46 PM CDT) Antibody Screen NEG 02/19/2025 9:42 PM CDT [facility] ABO Rh AB NEG 02/19/2025 9:42 PM CDT [facility] Blood Bank BLOOD SPECIMEN / Unknown Venipuncture / Unknown 02/19/2025 6:46 PM CDT 02/19/2025 6:48 PM CDT Antonio Leary MD LAB - BLOOD BANK ORDERABLES F inal Result [facility] [address] [place] [address], [place] [phone] * (ABNORMAL) CBC W AUTO DIFFERENTIAL (02/19/2025 6:46 PM [facility]) [facility] Signature WBC 14.3(H) 4.0 - 10.7 x10E9/L 02/19/2025 7:13 PM [facility] RBC Count 5.98(H) 4.30 - 5.80 x10E12/L 02/19/2025 7:13 PM [facility] Hemoglobin 17.5 13.3 - 17.5 g/dL 02/19/2025 7:13 PM [facility] Hematocrit 50.3 38.7 - 51.1 % 02/19/2025 7:13 PM [facility] MCV 84.1 80.0 - 98.0 fL 02/19/2025 7:13 PM [facility] MCH 29.3 26.7 - 33.6 pg 02/19/2025 7:13 PM [facility] MCHC 34.8 31.7 - 36.3 g/dL 02/19/2025 7:13 PM [facility] RDW-CV 12.7 11.3 - 14.8 % 02/19/2025 7:13 PM [facility] Platelet Count 201 150 - 420 x10E9/L 02/19/2025 7:13 PM [facility] MPV 9.9 7.8 - 11.4 fL 02/19/2025 7:13 PM [facility] Neutrophil % 82.8(H) 41.0 - 74.0 % 02/19/2025 7:13 PM [facility] Lymphocyte % 10.2(L) 17.0 - 47.0 % 02/19/2025 7:13 PM [facility] Monocyte % 5.9 3.0 - 11.0 % 02/19/2025 7:13 PM [facility] Eosinophil % 0.4 0.0 - 7.0 % 02/19/2025 7:13 PM [facility] Basophil % 0.3 0.0 - 1.6 % 02/19/2025 7:13 PM [facility] Immature Granulocytes % 0.4 0.0 - 1.0 % 02/19/2025 7:13 PM [facility] Neutrophil Absolute 11.82(H) 1.60 - 7.50 x10E9/L 02/19/2025 7:13 PM [facility] Lymphocyte Absolute 1.46 1.00 - 4.40 x10E9/L 02/19/2025 7:13 PM [facility] Monocyte Absolute 0.84 0.15 - 1.00 x10E9/L 02/19/2025 7:13 PM [facility] Eosinophil Absolute 0.06 0.00 - 0.60 x10E9/L 02/19/2025 7:13 PM [facility] Basophil Absolute 0.05 0.00 - 0.13 x10E9/L 02/19/2025 7:13 PM [facility] Blood BLOOD SPECIMEN / Unknown Venipuncture / Unknown 02/19/2025 6:46 PM CDT 02/19/2025 6:55 PM CDT us Antonio Leary MD LAB - HEMATOLOGY ORDERABLES F inal Result [facility] [address] [place] [id number], [facility] [place] [phone] * (ABNORMAL) COMPREHENSIVE METABOLIC PANEL (02/19/2025 6:46 PM CDT) BUN 19 7 - 26 mg/dL 02/19/2025 7:22 PM [facility] Creatinine 0.95 0.71 - 1.16 mg/dL 02/19/2025 7:22 PM [facility] Sodium 140 136 - 145 mmol/L 02/19/2025 7:22 PM [facility] Potassium 3.4(L) 3.5 - 4.5 mmol/L 02/19/2025 7:22 PM [facility] Chloride 103 98 - 107 mmol/L 02/19/2025 7:22 PM [facility] CO2 29 22 - 29 mmol/L 02/19/2025 7:22 PM [facility] Glucose 109(H) 70 - 99 mg/dL 02/19/2025 7:22 PM [facility] Calcium 8.7 8.4 - 10.2 mg/dL 02/19/2025 7:22 PM [facility] Protein Total 6.8 6.0 - 8.3 g/dL 02/19/2025 7:22 PM [facility] Albumin 4.3 3.4 - 5.0 g/dL 02/19/2025 7:22 PM [facility] Bilirubin Total 0.5 0.2 - 1.2 mg/dL 02/19/2025 7:22 PM [facility] Alkaline Phosphatase 68 40 - 150 U/L 02/19/2025 7:22 PM [facility] ALT 36 5 - 55 U/L 02/19/2025 7:22 PM [facility] AST 27 5 - 34 U/L 02/19/2025 7:22 PM [facility] Anion Gap 8 6 - 16 02/19/2025 7:22 PM [facility] BUN/Creatinine Ratio 20 7 - 23 02/19/2025 7:22 PM [facility] Osmolality Calculated 293 275 - 295 mOsm/kg 02/19/2025 7:22 PM [facility] Albumin/Globulin Ratio 1.7 1.1 - 2.3 02/19/2025 7:22 PM [facility] eGFR by CKD-EPI >90 >=90 mL/min/1.7 3 m2 02/19/2025 7:22 PM [facility] Comment:Estimated Glomerular Filtration Rate (eGFR) calculated using the CKD-EPI Creatinine Equation (2020), per the [employer] and [place] [employer] recommendations. Blood BLOOD SPECIMEN / Unknown Venipuncture / Unknown 02/19/2025 6:46 PM CDT 02/19/2025 6:55 PM CDT us Antonio Leary MD LAB - CHEMISTRY ORDERABLES Fi nal Result [facility] [address] [place] [address], [facility] [place] [phone] * ALCOHOL ETHYL BLOOD (02/19/2025 6:46 PM CDT) Ethanol (mg/dL) <10 <10 mg/dL 7:22 PM CDT [facility] Ethanol Calculated (g/dL) <0.010 <=0.010 g/dL 02/19/2025 7:22 PM CDT [facility] Blood BLOOD SPECIMEN / Unknown Venipuncture / Unknown 02/19/2025 6:46 PM CDT 02/19/2025 6:55 PM CDT Narrative [facility] - 02/19/2025 7:22 PM CDT Ethanol Interp <10: None Detected. Depression of [employer] M[employer]INE [employer]: >100 mg/dl Potentially Critical: >250 mg/dl Potentially Fatal >400 mg/dl Ethanol in the patient's blood will contribute to the osmolar gap. Ethanol's contribution to the osmolar gap can be estimated by dividing the concentration of ethanol in mg/dL by 4.6. This test is for clinical use only and does not equal a SCTOT for legal purposes. us Antonio Leary MD LAB - CHEMISTRY ORDERABLES Fi nal Result [facility] [address] [place] [id number], [place] [phone] from Last 3 Months Care Teams Client Service Associate Relationship Specialty Start Date End Date Shiraz Masters MD [address] [place] [address] PCP - General Family Medicine 02/19/25
== END 2025-04-19 11:10 | disposition home or self-care (01) ==
PROVIDERS: PCP Family Medicine
DX: J02.9 Acute pharyngitis, unspecified (principal); H10.32 Unspecified acute conjunctivitis, left eye; F12.90 Cannabis use, unspecified, uncomplicated; I10 Essential (primary) hypertension; N40.0 Benign prostatic hyperplasia without lower urinary tract symptoms; J44.9 Chronic obstructive pulmonary disease, unspecified; E78.2 Mixed hyperlipidemia; K21.9 Gastro-esophageal reflux disease without esophagitis; E66.9 Obesity, unspecified; Z68.30 Body mass index [BMI] 30.0-30.9, adult; I45.6 Pre-excitation syndrome; M19.90 Unspecified osteoarthritis, unspecified site; Z87.891 Personal history of nicotine dependence
CPT/HCPCS: 87081; 87880; 99213; G0463